=== PATIENT | male | born 1970 | race Caucasian/White ===

== ENCOUNTER 2021-05-24 18:17 | Emergency (ER) | payer OTHER ==
--- OUTSIDE RECORDS SUMMARY | 2021-05-24 18:22 | XMS REPORT | Continuity of Care Document ---
:1970 Author Organization [facility] t Address [address] [place] [address] Care Team Providers Name Role Phone Ashish Liu Primary Care Physician Taylor Henson Attending Clinician Shanice Leyva Attending Clinician Josephine DODGE Attending Clinician Unavailable Graeme Pathak Attending Clinician Charleen Tovar Attending Clinician Soraya Hope Attending Clinician MELI MOORE Attending Clinician Unavailable LIS Attending Clinician Unavailable ANGELY RODRIGUEZ Attending Clinician Unavailable Fernando Attending Clinician Robert Suarez Attending Clinician Graeme Pathak Admitting Clinician CASE Admitting Clinician Unavailable YUKI Admitting Clinician Unavailable Payers Payer Name Policy Type Policy Number Effective Date Expiration Date S ource Problems Condition Condition Condition Status Onset Resolution Last Treating Co mments Source Name Details Category Date Date Treatment Clinician Date RESEARCH Diagnosis Active 2021-05-16 M emoria 05-21 09:20:00 l RESEARCH 13:00: [place] urbina 00 Active 05/21/2021 [facility] KILLIAN Diagnosis Active 2021-01-24 Mem oria 3 11:21:00 l KILLIAN 00:00: Dominguez 00 Active 01/08/2021 [facility] OBSTRUCTIV Diagnosis Active 2021-02-05 Memoria E SLEEP 2- 07:41:00 l APNEA 00:00: Sidney (ADULT) OBSTRUCTIV 00 (PEDIATR E SLEEP APNEA (ADULT) (PEDIATR Active 12/31/2020 [facility] Nausea and Nausea and Disease Active Overview : [facility] vomiting, vomiting, 2-21 Added [facility] - intractabi intractabi 00:00: automatic Medical lity of lity of 00 ally from [facility] vomiting vomiting request not not for specified, specified, surgery unspecifie unspecifie [id number] d vomiting d vomiting type type Abdominal Abdominal Disease Active Overview: [facility] pain, pain, 2-21 [facility] - unspecifie unspecifie 00:00: automatic Medical d d 00 ally from [place] abdominal abdominal request location location for surgery [id number] Enteritis Enteritis Disease Active [facility] PAIN Diagnosis Active 2017-07-28 Mem oria 8 10:20:00 l PAIN 00:00: [place] 00 Active 06/28/2017 [facility] J32 - Diagnosis Active 2017-07-19 Mem oria CHRONIC 06-11 16:09:00 l SINUSITIS J32 - 00:01: [place] n CHRONIC 00 SINUSITIS [facility] Diagnosis Active 2016-06-05 Mem oria 715 09:59:00 l G20 00:00: Sidney 00 Active 05/22/2016 [facility] R25.1 - Diagnosis Active 2016-04-14 Or moria "TREMOR, -23 13:37:00 l UNSPECIFIE R25.1 - 00:01: Her cher D" "TREMOR, 00 UNSPECIFIE D" Active 6 [facility] [place] 327.23 Diagnosis Active 2014-06-26 Mem oria 8-12 08:30:00 l 327.23 00:00: [place] 00 Active 06/19/2014 [facility] 784.0 - Diagnosis Active 2014-07-03 Me moria HEADACHE 6-18 15:49:00 l 784.0 - 00:01: Dominguez HEADACHE 00 Active 04/25/2013 [facility] [place] Asthma Problem Active 2021-05-24 Memor ia (disorder) 21:19:21 l Asthma Dominguez (disorder) Active Problem 05/24/2021 [facility] Hypertensi Problem Active 2021-05-24 M emoria ve 21:19:21 l disorder, Dominguez systemic Hypertensi arterial ve (disorder) disorder, systemic arterial (disorder) Active Problem 05/24/2021 [facility] Obstructiv Problem Active 2021-05-24 M emoria e sleep 21:19:21 l apnea Dominguez syndrome Obstructiv (disorder) e sleep apnea syndrome (disorder) Active Problem 05/24/2021 [facility] Parkinson' Problem Active 2021-05-24 M emoria s disease 21:19:21 l (disorder) [place] Parkinson' s disease (disorder) Active [facility] [place] Tremor Problem Active 2021-05-24 Memor ia (finding) 21:19:21 l Tremor Sidney (finding) Active Problem 05/24/2021 [facility], [place] Impaired Problem Active 2021-05-24 Mem oria cognition 21:19:21 l (finding) Impaired Her kwon cognition (finding) Active Problem 05/24/2021 [facility] Finding of Problem Active 2018-05-09 M emoria body mass 11:41:32 l index Finding Dominguez (finding) of body mass index (finding) Active Problem 05/09/2018 [facility] Radiculopa Problem Active 2017-05-25 M emoria thy, 02:45:01 l cervical [place] region Radiculopa thy, cervical region Active Problem 05/25/2017 [facility] Tremor, Problem Active 2017-05-25 Flip emilia unspecifie 02:45:01 l d Tremor, Dominguez unspecifie d Active Problem 05/25/2017 [facility] Parkinson' Problem Active 2017-05-25 M emoria s disease 02:45:01 l [place] Parkinson' s disease Active Problem 05/25/2017 [facility] Brachial Problem Active 2017-05-25 Mem oria neuritis 02:45:01 l or Brachial [place] n radiculiti neuritis s NOS or radiculiti s NOS Active Problem 05/25/2017 [facility] Obstructiv Problem Active 2014-10-19 M emoria e sleep 05:02:26 l apnea Dominguez Obstructiv e sleep apnea Active Problem 10/19/2014 [facility] History of Past Illness Condition Condition Condition Status Onset Resolution Last Treating Co mments Source Name Details Category Date Date Treatment Clinician Date Obstructiv Problem 2018-05-09 2018-05-09 Memoria e sleep 02-05 11:41:32 11:41:32 l apnea 03:28: Sidney (adult) Obstructiv 42 (pediatric e sleep ) apnea (adult) (pediatric ) 02/05/2018 05/09/2018 [facility] Allergies, Adverse Reactions, Alerts Allergy Allergy Status Severity Reaction(s) Onset Inactive Treating Comm ents Source Name Type Date Date Clinician No Known DA Active [facility] -15 [place] 00:00: Health 00 are [place] Family History Family Member Diagnosis Comments Start Date Stop Date Source Natural mother Hypertension [facility] Natural mother Stroke [facility] Natural mother Depression [facility] Paternal grandfather Cancer [facility] Natural brother Asthma [facility] Natural father Arthritis [facility] Natural father Asthma [facility] Natural father Heart disease [facility] Natural father Hypertension [facility] Unknown Family Family History 2015-09-24 2015-09-24 Sandra al Dominguez Member 03:45:01 03:45:01 Social History Social Habit Start Date Stop Date Quantity Comments Source History of tobacco Current smoker [facility] - use [facility] History SDOH [facility] - Alcohol St[facility] History SDOH [facility] - Alcohol Binge Medical Nomi ter Sex Assigned At [facility] Social History 2021-02-04 2021-02-04 Nay shabazz 14:50:58 14:50:58 Cigarettes smoked 2019-01-02 2019-01-[address] [facility] - current (pack per 00:00:00 00:00:00 [facility] day) - Reported Cigarette 2019-01-02 2019-01-[address] [facility] - pack-years 00:00:00 00:00:00 [facility] Tobacco use and 2019-01-02 2019-01-[address] [facility] - exposure 00:00:00 00:00:00 [facility] Alcohol intake 2019-01-02 2019-01-[address] [facility] [facility] - 00:00:00 00:00:00 non-drinker of Medical Ce nter alcohol (finding) History SDOH 2018-12-14 2018-12-[address] [facility] - Alcohol Frequency 00:00:00 00:00:00 [facility] Smoking 2016-06-17 2016-06-17 [facility] 00:00:00 00:00:00 Smoking Status Start Date Stop Date Source Former smoker 2019-01-02 00:00:00 2019-01-02 00:00:00 [facility] Medications Ordered Filled Start Stop Current Ordering Indication Dosage Frequency Signature Comments Components Source Medication Medication Date Date Medication? Clinician (SIG) Name Name lidocaine No Route: IV, Me moria (ANES) 02-05 Drug form: l 12:59: INJ, ONCE, Stop date: 02/05/21 7:59:00 CDT propofol No Route: IV, Mem oria (ANES) 02-05 Drug form: l 12:59: INJ, ONCE, Stop date: 02/05/21 7:59:00 CDT glycopyrrol No Route: IV, Memoria ate (ANES) 02-05 Drug form: l 12:59: INJ, ONCE, Stop date: 02/05/21 7:59:00 CDT LR IV 1,000 No 1,000 mL, M emoria mL 02-05 Rate: 40 l 12:08: ml/hr, Infuse over: 25 hr, Route: IV, Dosing Weight 108.693 kg, Total Volume: 1,000, Start date: 02/05/21 7:08:00 CDT, Duration: 30 day, Stop date: 03/07/21 7:07:00 CDT, 2.34, m2, 0 metoprolol 0 Yes 100 mg = 1 M emoria tartrate 3-30 tab, PO, l 100 mg oral 14:52: BID, # 60 H ermann tablet 00 tab, 0 Refill(s) rasagiline 0 Yes 1 mg = 1 Mem oria 1 MG Oral 3-19 tab, PO, l Tablet 21:39: Daily, # Dominguez [Azilect] 00 30 tab, 6 Refill(s), Pharmacy: [facility] #[id number], 177.8, cm, 01/24/21 13:48:00 CDT, Height, 113.352, kg, 01/24/21 13:48:00 CDT, Weight Donepezil 0 Yes 10 mg = 1 Mem oria hydrochlori 3-19 tab, PO, l de 10 MG 21:38: Bedtime, # Her kwon Oral Tablet 00 30 tab, 6 [Aricept] Refill(s), Pharmacy: [facility] #[id number], 177.8, cm, 01/24/21 13:48:00 CDT, Height, 113.352, kg, 01/24/21 13:48:00 CDT, Weight 8 HR 0 Yes 1 cap, PO, Memoria Carbidopa 3-19 TID, # 90 l 36.25 MG / 21:36: cap, 6 Kimberlyn nn Levodopa 00 Refill(s), 145 MG Pharmacy: [facility] Oral #[id number], Capsule 177.8, cm, [Rytary] 01/24/21 13:48:00 CDT, Height, 113.352, kg, 01/24/21 13:48:00 CDT, Weight 8 HR 0 Yes 1 cap, PO, Memoria Carbidopa 3-19 TID, # 90 l 61.25 MG / 21:36: cap, 6 Kimberlyn nn Levodopa 00 Refill(s), 245 MG Pharmacy: [facility] #[id number], Capsule 177.8, cm, [Rytary] 01/24/21 13:48:00 CDT, Height, 113.352, kg, 01/24/21 13:48:00 CDT, Weight Donepezil 2019-11 Yes See Memoria hydrochlori 2-08 Instructio l de 10 MG 22:26: ns, 1/2 [place] n Oral Tablet 00 tab PO [Aricept] Bedtime x 1 month then 1 tab at bedtime, # 30 tab, 6 Refill(s), Pharmacy: [facility] 738, 177.8, cm, 10/15/20 14:55:00 LAW REPORTER, Height, 112.784, kg, 10/15/20 14:55:00 LAW REPORTER, Weight 8 HR 2019-11 Yes 1 cap, PO, Memoria Carbidopa 0-23 TID, # 90 l 36.25 MG / 21:33: cap, 6 Kimberlyn nn Levodopa 00 Refill(s), 145 MG Pharmacy: [facility] Oral 738, Capsule 177.8, cm, [Rytary] 09/20/19 13:21:00 LAW REPORTER, Height, 112.727, kg, 09/20/19 13:21:00 LAW REPORTER, Weight rOPINIRole 2018-11 Yes 2 tabs, Flip emilia 5 mg oral 1-13 PO, TID, # l tablet 20:13: 270 tab, 0 Kimberlyn nn 00 Refill(s) 8 HR 2018-11 Yes 1 cap, PO, Memoria Carbidopa 1-13 TID, 0 l 61.25 MG / 20:13: Refill(s) He rmann Levodopa 00 245 MG Extended Release Oral Capsule [Rytary] CPAP 2018-11 Yes 1 ea, Memoria Machine 1-13 MISC, l 19:46: Daily, New Dominguez 00 CPAP mask and headgear for dx OSAS G47.33 with PAP applicatio n., # 1 ea, 0 Refill(s) carbidopa/l 2018- Yes 23.75mg [id number] Take 23.[address] evodopa 9-29 [id number] mg by [facility] - (RYTARY 14:29: 3D mouth 3 Medical ORAL) 07 (three) Center times daily 7 AM /12 Noon & 1700 ( Dose 23.75/95 mg). fenofibrate Yes 160mg QD Take [address] (TRIGLIDE,L 9-29 mg by [facility] - OFIBRA) 160 14:29: mouth Medic al MG tablet 07 daily. [place] rasagiline Yes 1mg QD Take [address] (AZILECT) 08-06 by mouth [facility] - 0.5 MG Tab 14:29: daily. Medic al 07 [place] rOPINIRole Yes 8mg QD Take [address] (REQUIP XL) 08-06 by mouth Luke [facility] - 8 MG 24 hr 14:29: nightly. Med ical tablet 07 [place] rotigotine Yes idiopathic 8mg QD Place [address] (NEUPRO) 8 08-06 parkinsonis onto the [facility] - mg/24 hour 14:29: m skin Medical PT24 06 daily. [place] montelukast Yes maintenance 10mg QD Take [address] (SINGULAIR) 08-06 therapy for by mouth [facility] - 10 mg 14:29: asthma nightly. Medica l tablet 06 [place] desvenlafax Yes 25mg QD Take [address] ine 08-06 by mouth [facility] - succinate 14:29: daily . Medic al (PRISTIQ) 06 [place] 25 mg Tb24 pramipexole Yes 1 mg = 1 Me moria 1 mg oral 4-04 tab, PO, l tablet 12:34: TID, # 90 [place] n 45 tab, 0 Refill(s), Pharmacy: [place] [address], PT NEEDS A FOLLOW UP CPAP Yes 1 ea, Memoria Machine 07-30 MISC, l 13:05: Daily, Has [place] 00 machine for CPAP at 11cm H2O. Needs new mask and supplies with refills prn, # 1 ea, 5 Refill(s) pramipexole Yes 1 mg = 1 Me moria 1 mg oral 07-30 tab, PO, l tablet 12:56: TID, # 270 Kimberlyn nn 00 tab, 1 Refill(s), Pharmacy: [place] [address] pramipexole Yes 0.5 mg = 1 Memoria 0.5 mg oral 4-13 tab, PO, l tablet 15:33: TID, # 90 [place] n 00 tab, 3 Refill(s), Pharmacy: [place] [address] pramipexole Yes See Memori a 0.125 mg 4-13 Instructio l oral tablet 15:33: ns, 1 tab H ermann 00 po tid x 7 days then 2 tabs po tid (then will increase to 0.5mg tablets), 14 days, # 63 tab, 0 Refill(s), Pharmacy: [place] [address] B-Complex Yes 1 tab, PO, Me moria 50 2-13 Daily, 0 l 22:47: Refill(s) rasagiline Yes 1 mg = 1 Mem oria 1 MG Oral 1-16 tab, PO, l Tablet 12:19: Daily, # Dominguez [Azilect] 00 30 tab, 11 Refill(s), Pharmacy: [place] [address] Fentanyl No Notes: Memoria 9-20 (Same as: l 17:31: Sublimaze) Preservat maegan free. Ondansetron No Notes: Flip emilia 9-20 (Same as: l 17:31: Zofran) MEDICATION WASTE Product Size: 4 mg Product Wasted: ___ mg Flumazenil No Notes: Memor ia 9-20 (Same as: l 17:31: Romazicon) Hydromorpho No Notes: Flip emilia ne -20 Same as: l 17:31: Dilaudid Naloxone No Notes: Memoria 9-20 Same as l 17:31: Narcan Hydralazine No Notes: Flip emilia 9-20 (Same as: l 17:31: Apresoline ) Push over 5 minutes Labetalol No 10 mg, 2 Flip emilia 9-20 mL, Route: l 17:31: IVP, Drug form: INJ, Q5Min, Dosing Weight 92.443, kg, PRN Elevated BP, Start date: 07/28/17 12:31:00 CDT, Duration: 5 doses or times, Stop date: Limited # of times fentaNYL No Route: IV, Mem oria (ANES) - Drug form: l 17:31: INJ, ONCE, Stop date: 07/28/17 12:31:00 CDT neostigmine No Route: IV, Memoria (ANES) 07-28 Drug form: l 17:31: INJ, ONCE, Dominguez Stop date: 07/28/17 12:31:00 CDT glycopyrrol No Route: IV, Memoria ate (ANES) 07-28 Drug form: l 17:31: INJ, ONCE, Dominguez Stop date: 07/28/17 12:31:00 CDT ondansetron No Route: IV, Memoria (ANES) 07-28 Drug form: l 17:31: INJ, ONCE, Dominguez 00 Stop date: 07/28/17 12:31:00 CDT Zofran Yes Notes: Memoria 07-28 (Same as: l 17:25: Zofran) Dominguez Sodium No 1,000 ml, Memori a Chloride 07-28 Route: l 0.0769 17:25: IRRIG, Sidney MEQ/ML 00 Drug Form: Irrigation SOLN, Solution Dosing Weight 92.443, kg, Q6H, PRN Wound Care, Start date: 07/28/17 12:25:00 CDT, Duration: 30 day, Stop date: 08/27/17 12:24:00 CDT Acetaminoph No Notes: Flip emilia en 325 MG / 07-28 (Same as: l Hydrocodone 17:25: [place] Kimberlyn nn Bitartrate 00 325/5) Do 5 MG Oral not exceed Tablet 4gm/day of acetaminop hen. ePHEDrine No Route: IV, Me moria (ANES) 07-28 Drug form: l 14:48: INJ, ONCE, Sidney 00 Stop date: 07/28/17 9:48:00 CDT famotidine No Route: IV, M emoria (ANES) 07-28 Drug form: l 14:43: INJ, ONCE, Sidney 00 Stop date: 07/28/17 9:43:00 CDT acetaminoph No Route: IV, Memoria en (ANES) 07-28 Drug form: l 14:43: INJ, ONCE, Dominguez 00 Stop date: 07/28/17 9:43:00 CDT phenylephri 2016- No Route: IV, Memoria ne (ANES) 07-28 Drug form: l 14:43: INJ, ONCE, Sidney Stop date: 07/28/17 9:43:00 CDT dexamethaso No Route: IV, Memoria ne (ANES) 07-28 Drug form: l 14:33: INJ, ONCE, Sidney Stop date: 07/28/17 9:33:00 CDT lidocaine No Route: IV, Me moria (ANES) 07-28 Drug form: l 14:28: INJ, ONCE, Dominguez 00 Stop date: 07/28/17 9:28:00 CDT propofol No Route: IV, Mem oria (ANES) 07-28 Drug form: l 14:28: INJ, ONCE, Dominguez 00 Stop date: 07/28/17 9:28:00 CDT rocuronium No Route: IV, M emoria (ANES) 07-28 Drug form: l 14:28: INJ, ONCE, Dominguez 00 Stop date: 07/28/17 9:28:00 CDT midazolam No Route: IV, Me moria (ANES) 07-28 Drug form: l 14:28: SOLN, Sidney 00 ONCE, Stop date: 07/28/17 9:28:00 CDT fentaNYL No Route: IV, Mem oria (ANES) 07-28 Drug form: l 14:28: INJ, ONCE, Sidney 00 Stop date: 07/28/17 9:28:00 CDT ceFAZolin No Route: IV, Me moria (ANES) 07-28 Drug form: l 14:28: INJ, ONCE, Stop date: 07/28/17 9:28:00 CDT Lidocaine No 5 mg, Memoria Hydrochlori 07-28 Route: l de 10 MG/ML 14:00: INTRADERM, Sidney Injectable Dosing Solution Weight 92.443, kg, ONCALL, Start date: 07/28/17 9:00:00 CDT, Duration: 30 day, Stop date: 08/27/17 8:59:00 CDT LR 1000 mL 2017-0 No Route: IV, M emoria INJ (ANES) 07-28 Total l 13:48: Volume: Dominguez 00 1,000, Start date: 07/28/17 8:48:00 CDT, Stop date: 07/28/17 9:48:00 CDT Lactated No 1,000 mL, Flip emilia Ringers 07-28 Rate: 40 l 1,000 mL 13:14: ml/hr, Infuse over: 25 hr, Route: IV, Dosing Weight 92.443 kg, Total Volume: 1,000, Start date: 07/28/17 8:14:00 CDT, Duration: 30 day, Stop date: 08/27/17 8:13:00 CDT Zofran No Notes: Memoria 07-28 (Same as: l 10:00: Zofran) MEDICATION WASTE Product Size: 4 mg Product Wasted: ___0 mg ceFAZolin No Notes: Memori a 07-28 Same as: l 10:00: Ancef oxymetazoli No Notes: Flip emilia ne nasal 07-28 (Same as: l 0.05% spray 10:00: Afrin) cetirizine Yes 10 mg = 1 Me moria hydrochlori -19 tab, PO, l de 10 MG 15:34: Daily, 0 Kimberlyn nn Oral Tablet 00 Refill(s) [Zyrtec] Hydrochloro Yes 1 tab, PO, Memoria thiazide 25 - Daily, 0 l MG / 15:34: Refill(s) Losartan 00 Potassium 100 MG Oral Tablet Fenofibrate Yes 160 mg = 1 Memoria 160 MG Oral -19 tab, PO, l Tablet 15:33: Daily, 0 Dominguez 00 Refill(s) EnLyte oral Yes 1 cap, PO, Memoria capsule - Daily, 0 l 15:33: Refill(s) rasagiline Yes 1 mg = 1 Mem oria 1 MG Oral -19 tab, PO, l Tablet 15:32: Daily, # Sidney [Azilect] 00 30 tab, 0 Refill(s) Zofran No Notes: Memoria 07-27 (Same as: l 10:00: Zofran) Dominguez 00 MEDICATION WASTE Product Size: 4 mg Product Wasted: ___0 mg losartan-hy Yes 1 tab, PO, [facility] droCHLOROth 07-27 Daily, 0 Luke s - iazide 00:00: Refill(s) Medica l (HYZAAR) 00 Center 100-25 mg per tablet testosteron Yes Dudley 0 Memori a e 7-18 Hope l 02:45: Dominguez 01 fenofibrate Yes Dudley 1 tab(s) Me moria 18 Hope l 02:45: Dominguez 01 hydrochloro Yes Dudley 1 tab Memor ia thiazide-lo 18 Hope l sartan 02:45: Sidney 01 selegiline Yes Dudley 1 tab Memori a 9-08 Hope l 00:00: [place] Azilect Yes Dudley 1 tab Memoria 8-11 Hope l 00:00: [place] CPAP [id number] 0 Yes Dudley PAP Memoria 8-21 Hope supplies l 00:00: 4ea mask Dominguez 00 [id number], A7030 and/or A7034 q3mos, 24ea mask pillows A7033 q2wk, 2ea chinstrap A7036 q6mos, 24ea filters disposable A7038 q2wk, 2ea humidifier chamber A7046 q6mos, 24ea mask cushion A7032 q2wk, 2ea headgear A7035 q6mos Vital Signs Vital Name Observation Time Observation Value Comments Source Respitory Rate 2021-02-05 13:50:00 Memori al Dominguez Systolic (mm Hg) 2021-02-05 13:50:00 Flip rial [place] Diastolic (mm Hg) 2021-02-05 13:50:00 Mem orial [place] Respitory Rate 2021-02-05 13:40:00 Memori al Dominguez Systolic (mm Hg) 2021-02-05 13:40:00 Flip rial Dominguez Diastolic (mm Hg) 2021-02-05 13:40:00 Mem orial Dominguez Respitory Rate 2021-02-05 13:30:00 Memori al [place] Systolic (mm Hg) 2021-02-05 13:25:00 Flip rial [place] Diastolic (mm Hg) 2021-02-05 13:25:00 Mem orial Dominguez Weight 2021-02-05 11:38:00 Memorial [place] Height 2021-02-04 14:50:00 177.8 cm Memorial Dominguez Weight 2021-02-04 14:50:00 Memorial Dominguez BMI Calculated 2021-02-04 14:50:00 Memori al Dominguez Systolic (mm Hg) 2021-01-24 15:50:00 Flip rial [place] Diastolic (mm Hg) 2021-01-24 15:50:00 Mem orial [place] Heart Rate 2021-01-24 15:50:00 Memorial [place] Height 2021-01-24 15:50:00 177.8 cm Memorial Dominguez Weight 2021-01-24 15:50:00 Memorial [place] BMI Calculated 2021-01-24 15:50:00 Memori al [place] Systolic (mm Hg) 2020-10-15 20:55:00 Flip rial Dominguez Diastolic (mm Hg) 2020-10-15 20:55:00 Mem orial [place] Heart Rate 2020-10-15 20:55:00 Memorial Dominguez Height 2020-10-15 20:55:00 177.8 cm Memorial [place] Weight 2020-10-15 20:55:00 Memorial Dominguez BMI Calculated 2020-10-15 20:55:00 Memori al [place] Systolic (mm Hg) 2019-09-20 13:55:00 Filp rial Dominguez Diastolic (mm Hg) 2019-09-20 13:55:00 Mem orial [place] Heart Rate 2019-09-20 13:55:00 Memorial Dominguez Height 2019-09-20 13:55:00 177.8 cm Memorial Dominguez Weight 2019-09-20 13:55:00 Memorial [place] BMI Calculated 2019-09-20 13:55:00 Memori al [place] Weight 2018-07-27 12:02:00 Memorial Dominguez BMI Calculated 2018-07-27 12:02:00 Memori al [place] Height 2018-07-27 12:02:00 177.8 cm Memorial [place] Heart Rate 2018-07-27 12:02:00 [facility] [place] Systolic (mm Hg) 2018-07-27 12:02:00 Flip rial [place] Diastolic (mm Hg) 2018-07-27 12:02:00 Mem orial [place] Systolic (mm Hg) 2018-05-03 20:23:00 Flip rial Dominguez Diastolic (mm Hg) 2018-05-03 20:23:00 Mem orial Dominguez Weight 2018-05-03 20:23:00 Memorial [place] BMI Calculated 2018-05-03 20:23:00 Memori al [place] Heart Rate 2018-05-03 20:23:00 [facility] [place] Height 2018-05-03 20:23:00 177.8 cm Memorial Dominguez Height 2018-02-17 22:04:00 177.8 cm Memorial Dominguez BMI Calculated 2018-02-17 22:04:00 Memori al [place] Weight 2018-02-17 22:04:00 Memorial Dominguez Systolic (mm Hg) 2018-02-17 22:04:00 Flip rial [place] Diastolic (mm Hg) 2018-02-17 22:04:00 Mem orial Dominguez Heart Rate 2018-02-17 22:04:00 [facility] [place] BMI Calculated 2017-12-21 22:04:00 Memori al Dominguez Weight 2017-12-21 22:04:00 Memorial Dominguez Height 2017-12-21 22:04:00 177.8 cm Memorial [place] Heart Rate 2017-12-21 22:04:00 [facility] [place] Systolic (mm Hg) 2017-12-21 22:04:00 Flip rial [place] Diastolic (mm Hg) 2017-12-21 22:04:00 Mem orial Dominguez Respitory Rate 2017-07-28 18:40:00 Memori al Dominguez Systolic (mm Hg) 2017-07-28 18:40:00 Flip rial [place] Diastolic (mm Hg) 2017-07-28 18:40:00 Mem orial [place] Respitory Rate 2017-07-28 18:30:00 Memori al [place] Systolic (mm Hg) 2017-07-28 18:30:00 Flip rial Dominguez Diastolic (mm Hg) 2017-07-28 18:30:00 Mem orial Dominguez Systolic (mm Hg) 2017-07-28 18:20:00 Flip rial Dominguez Diastolic (mm Hg) 2017-07-28 18:20:00 Mem orial Dominguez Respitory Rate 2017-07-28 18:20:00 Sandra hobson Sidney Temperature Oral (F) 2017-07-28 13:05:00 98.1 F [facility] Dominguez Weight 2017-07-28 12:48:00 [facility] [place] Height 2017-07-27 15:34:00 177.8 cm Memorial Dominguez BMI Calculated 2017-07-27 15:34:00 Memori al [place] Weight 2017-07-27 15:34:00 [facility] [place] Weight 2017-05-17 15:45:00 [facility] [place] Height 2017-05-17 15:45:00 [facility] [place] Weight 2016-06-17 18:00:00 Memorial Dominguez Height 2016-06-17 18:00:00 [facility] Dominguez Weight 2016-05-18 19:45:00 [facility] Dominguez Height 2016-05-18 19:45:00 [facility] [place] Weight 2015-09-17 21:15:00 [facility] Dominguez Height 2015-09-17 21:15:00 [facility] [place] Weight 2014-03-05 19:15:00 [facility] Dominguez Height 2014-03-05 19:15:00 [facility] Dominguez Procedures Procedure Date / Time Performed Performing Clinician [facility] e Lumpectomy [facility] Plan of Care Planned Activity Planned Date Details Comments Source Future Scheduled 2021-07-[address] [facility] - Test 00:00:00 (Season Ended) [code = Medic al Center INFLUENZA VACCINE (Season Ended)] Future Scheduled 2020-11-[address] [facility] - Test 00:00:00 (12+) [code = [facility] DEPRESSION SCREENING (12+)] Future Scheduled 2019 SHINGLES VACCINES ([address] [facility] - Test 00:00:00 of 2) [code = SHINGLES Medic al Center VACCINES (1 of 2)] Future Scheduled [address] Test 00:00:00 (procedure) [code = [facility] [id number]] Future Scheduled 1988 DTAP/TDAP/TD VACCINES [facility] Test 00:00:00 (1 - Tdap) [code = Medical C enter DTAP/TDAP/TD VACCINES (1 - Tdap)] Future Scheduled 1987 HEPATITIS C [facility]CRE[facility]ING [facility] Test 00:00:00 [code = HEPATITIS C Medical Center SCREENING] Future Scheduled [address] [facility] - Test 00:00:00 0-64 YRS (1 of 3 - Medical C enter PCV13) [code = PNEUMOCOCCAL VACCINE 0-64 YRS (1 of 3 - PCV13)] Future Scheduled [address] [facility] Test 00:00:00 [facility] colon (procedure) [code = 133961871] Encounters Start End Encounter Admission Attending Care Care Encounter Source Date/Time Date/Time Type Type Clinicians Facility Department ID 2021-05-16 Outpatient [facility] [id number] HH 09:19:00 2021-03-06 Outpatient [facility] [id number] HH 12:00:34 2021-03-06 Outpatient [facility] [id number] HH 11:54:46 2021-05-22 2021-05-22 Outpatient Sixto MISCHER MHMISCHER [id number] 08:30:00 08:30:00 Gracie Vazquez 2021-04-25 2021-04-25 Outpatient Gordon MISCHER MHMISCHER [id number] 12:00:00 23:59:59 Tess Prasad 2021-04-25 2021-04-25 Outpatient Gordon MISCHER MHMISCHER [id number] 12:00:00 12:00:00 Tess Prasad 2021-04-25 2021-04-[address] [facility] [id number] 00:00:00 00:00:00 [facility] [id number] [place] [id number] 2021-02-05 2021-02-05 Outpatient LANIE Pathak [id number] 06:17:00 09:10:00 Mook Jef Graeme 2021-02-05 2021-02-05 Outpatient LANIE Pathak [id number] 09:00:00 09:00:00 Mook 04 Graeme 2021-02-05 2021-02-05 Outpatient MHTW MHTW [id number] MHTW 06:17:00 06:17:00 2021-01-24 2021-01-24 Outpatient Leyva, MHMISCHER MHMISCHER [id number] 13:30:00 23:59:59 Tess Prasad 2021-01-24 2021-01-24 Outpatient LANIE Pathak [facility] [id number] 11:15:00 23:59:00 Mooktyra Bedolla 2021-01-24 2021-01-24 Outpatient MHTW MHTW [id number] MHTW 11:15:00 11:15:00 2021-01-17 2021-01-18 Outpatient MHMISCHER MHMISCHER [id number] 10:43:08 23:59:59 11 2020-12-16 2020-12-16 Outpatient Guy, MHMISCHER MHMISCHER 3 [id number] 14:00:00 14:00:00 Tory Villaseñor 2020-10-30 2020-10-31 Outpatient MHMISCHER MHMISCHER 003 [id number] 16:06:46 23:59:59 10 2020-10-15 2020-10-15 Outpatient Gordon, MHMISCHER MHMISCHER [id number] 14:30:00 23:59:59 Tess 08 Shanice 2020-10-01 2020-10-02 Outpatient MHMISCHER MHMISCHER [id number] 10:43:33 23:59:59 09 2019-10-20 2019-10-20 Outpatient Guy, MHMISCHER MHMISCHER 3 [id number] 11:00:00 11:00:00 Tory Villaseñor 07 2019-09-20 2019-09-20 Outpatient Guy, MHMISCHER MHMISCHER 3 [id number] 13:00:00 23:59:59 Tory Villaseñor 06 2019-09-20 2019-09-20 Outpatient Herminia, MHMISCHER MHMISCHER 3 [id number] 14:30:00 14:30:00 Dudley Lira 2018-10-19 2018-10-19 Outpatient Herminia MHMISCHER MHMISCHER 3 [id number] 09:00:00 09:00:00 Dudley 04 [place] 2018-10-09 2018-10-10 Outpatient MHMISCHER MHMISCHER [id number] 08:09:00 23:59:59 08 2018-07-27 2018-07-27 Outpatient Herminia MHMISCHER MHMISCHER 3 [id number] 10:30:00 23:59:59 Dudley [place] 2018-05-04 2018-05-04 Outpatient Herminia MHMISCHER MHMISCHER 3 [id number] 08:00:00 23:59:59 Dudley [place] 2018-04-26 2018-04-27 Outpatient MHMISCHER MHMISCHER [id number] 08:49:00 23:59:59 07 2018-03-01 2018-03-02 Outpatient MHMISCHER MHMISCHER [id number] 10:55:00 23:59:59 06 2018-02-18 2018-02-19 Outpatient MHMISCHER MHMISCHER [id number] 11:35:00 23:59:59 05 2018-02-18 2018-02-19 Outpatient MHMISCHER MHMISCHER [id number] 10:52:00 23:59:59 04 2018-02-18 2018-02-18 Outpatient Herminia MHMISCHER MHMISCHER 3 [id number] 09:30:00 23:59:59 Dudley [place] 2018-01-31 2018-01-31 Outpatient LANIE King [facility] [id number] 14:30:00 23:59:00 Desi 03 2017-12-21 2017-12-21 Outpatient Herminia MHMISCHER MHMISCHER 3 [id number] 15:30:00 23:59:59 Dudley [place] 2017-11-22 2017-11-23 Outpatient MHMISCHER MHMISCHER [id number] 15:06:00 23:59:59 03 2017-11-22 2017-11-23 Outpatient MHMISCHER MHMISCHER [id number] 12:06:00 23:59:59 02 2017-11-17 2017-11-18 Outpatient MHMISCHER MHMISCHER [id number] 15:59:00 23:59:59 2017-10-21 2017-10-22 Outpatient [facility] [id number] 11:34:00 23:59:59 00 2017-07-28 2017-07-28 Outpatient LANIE Suarez [facility] [id number] 07:39:00 14:00:00 Jaret Jones 02 2017-06-22 2017-06-22 Outpatient Quegabriel [address] [place] [address] [id number] 07:43:00 23:59:00 Jaret Jones 04 2017-05-17 2017-05-17 Outpatient The The [id number] eClinic 10:45:00 10:45:00 [facility] [facility] 2016-08-13 2016-08-13 Outpatient The The [id number] eClinic 10:31:00 10:31:00 [facility] [facility] Neu[facility] Sleep 2016-06-23 2016-06-23 Outpatient The The [id number] eClinic 13:36:00 13:36:00 [facility] [facility] Neu[facility] Sleep 2016-06-17 2016-06-17 Outpatient The The [id number] eClinic 13:00:00 13:00:00 [facility] [employer] [facility] Neurology and Sleep [facility] Sleep 2016-06-12 2016-06-12 Outpatient The The [id number] eClinic 14:30:00 14:30:00 [facility] [facility] Neu[facility] Sleep 2016-06-05 2016-06-05 Outpatient Herminia [facility] [id number] 09:49:00 23:59:00 Dudley Lira 2016-05-18 2016-05-18 Outpatient The The [id number] eClinic 15:57:00 15:57:00 [facility] [facility] Neurology [facility] Sleep 2016-05-18 2016-05-18 Outpatient The The [id number] eClinic 14:45:00 14:45:00 [facility] [facility] Neurology [facility] Sleep 2016-04-21 2016-04-21 Outpatient The The [id number] eClinic 18:09:00 18:09:00 [facility] [employer] [facility] Neurology and Sleep [facility] Sleep 2016-04-21 2016-04-21 Outpatient The The [id number] eClinic 14:56:00 14:56:00 [facility] [facility] Neurology and Sleep [facility] Sleep 2016-04-14 2016-04-14 Outpatient [place], [place] [id number] 13:28:00 23:59:00 Dudley Lira 2016-03-11 2016-03-11 Outpatient The The [id number] eClinic 16:50:00 16:50:00 [facility] Neurology [facility] Sleep [facility] Sleep 2015-09-17 2015-09-17 Outpatient The The [id number] eClinic 15:15:00 15:15:00 [facility] [facility] Neurology and Sleep [facility] Sleep 2014-06-28 2014-06-28 Outpatient The The [id number] eClinic 13:38:00 13:38:00 [facility] [facility] Neurology and Sleep and Sleep 2014-06-09 2014-06-09 Outpatient The The [id number] eClinic 22:34:00 22:34:00 [facility] [facility] Neurology and Sleep and Sleep 2014-04-24 2014-04-24 Outpatient The The [id number] eClinic 15:55:00 15:55:00 [facility] [facility] Neurology and Sleep [facility] Sleep 2014-04-24 2014-04-24 Outpatient The The [id number] eClinic 15:00:00 15:00:00 [facility] [facility] Neurology [facility] Sleep [facility] Sleep 2014-03-19 2014-03-19 Outpatient The The [id number] eClinic 14:23:00 14:23:00 [facility] [facility] Neurology and Sleep and Sleep 2014-03-05 2014-03-05 Outpatient The The [id number] eClinic 13:15:00 13:15:00 [facility] [facility] Neurology and Sleep and Sleep Results Test Description Test Time Test Comments Results Result Comments Source SURGICAL SPECIMENS 2021-02-24 17:44:00 Test Item Value Reference Range Interpretation Comme nts SURGICAL RUN SPECIMENS DATE: 02/24/21 [facility] - LAB PAGE 1 RUN TIME: (test code 1745 Specimen Inquiry RUN USER: INTERFACE = SURG) PATIE NT: NAYE DYE LOC: L[place]ET U #: [id number] AGE/SX: 50/M ROOM: RE02/21/21REG DR: Lucas Atkins : 68 BED : DIS: STATUS: [facility] TLOC: SPEC #: [id number] RECD: 02/21/21 STATUS: CY SHAZIA #: [id number] EZEQUIEL: 02/21/21 - SUBM DR: Lucas Atkins MD ENTERED: 02/21/21 SP TYPE: SURG OTHR DR: Don Forte-Chito Leigh MD, MDORDERED: PATHGM4/4, STAINGR2, SPEC STAIN I TISSUES: 1. DUODENUM, NOS - DUODENUM BIOPSY 2. GASTRIC BIOPSY - GASTRIC BIOPSY 3. GASTRO-ESOPHAGEAL JUNCTION BIOPSY - GE JUNCTIO N BIOPSY 4. POLYP, NOS - DESCENDING COLON POLYP Clinical Impression Nause a; epigastric pain; diarrhea FINAL DIAGNOSIS 1. Duodenum biopsy - MILD CHRONIC DUOD ENITIS NO CELIAC DISEASE, PARASITIC ORGANISMS, ADENOMATOUS CHANGES OR MALIGNANCY PRESENT 2. Gastric biopsy - MILD CHRONIC GASTRITIS WITH FOVEOLAR HYPERPLASIA (REACTIVE GASTRO CLARTIA) NO HELICOBACTER ORGANISMS PRESENT (MEIER GIEMSA STAIN) REPARATIVE CHANGES 3. GE junction biopsy - MODERATE ACUTE AND CHRONIC GASTROESOPHAGITIS MINIMAL CHANGES OF REFLUX ES OPHAGITIS, ESOPHAGEAL SQUAMOUS MUCOSA NEGATIVE FOR AREVALO'S METAPLASIA (ALCIAN BLUE STAI N) 4. Descending colon polyp - HYPERPLASTIC POLYP GROSS DESCRIPTION 1. Spec imen submitted as "Duodenal biopsy" consists of three fragments of thompson-orange tissue measurin g up to 0.2 cm, submitted as A. 2. Specimen submitted as "Gastric biopsy" consists of one frag ment of thompson-pink tissue measuring 0.3 cm, submitted as B. 3. Specimen submitted as "GE ju nction biopsy" consists of two fragments of pale white-pink tissue measuring 0.2 cm each, submi tted as C. 4. Specimen submitted as "Descending colon polyp" consists of two fragments of thompson-orange tissue measuring 0.2 cm each, submitted as D. All of the stains, including any controls performed, stain appropriately. CONTINUED ON NEXT PAGE RUN DATE: 02/24/21 [email or web address] LAB PAGE 2 RUN TIME: 1745 Specimen Inquiry RUN USER: INTERFACE SPEC #: [id number] PATIENT: NAYE DYE #[id number] (Continued) ------ Post Op Diagn osis: R/O celiac disease; gastritis; esophagitis; colon polyps; hemorrhoids; diverticulosis --------- Signed SIGNATURE O N Ivan Dickey MD 02/24/21 1744 END OF REPORT COVID 19 Asymptomatic IH [id number] 15:46:00 Test Item Value Reference Range Interpretation Comments COVID 19 Asymptomatic NEGATIVE Negative NEGAT MAEGAN RESULTS IH AG (test code = SHOULD BE TREATED COVNONPUIAG) PRESUMPTIVE ANDCONFIRMED WT IH A MOLECULAR ASSAY , IF NECESSARY FOR PATIENTMANAGEME NT. NEGATIVE RESULT S DO NOT RULE OUT CO VID-19 ANDSHOULD NOT B E USED THE SOLE BAS IS FOR TREATMENT ORPAT IENT MANAGEMENT DECI SIONS, INCLUDING INFEC TION CONTROLDECISION S. NEGATIVE RESULT S SHOULD BE CONSI DERED IN THECONTEXT O F A PATIENT'S RECEN T EXPOSURES, HIST ORY AND THEPRESENCE OF CLINICAL SIGNS AND SYMPTOMS CONSIS TENT WITHCOVID-19. [id number] 16:20:00Not Detected *NA*(02/01/21 11:20 AM)[facility] CHEM [id number] 16:01:89648Stqjlbey JoboolannCHEM [id number] 16:01:0014 [facility] HermannCHEM [id number] 16:01:000.85[facility] HermannCHEM PANEL 2021-02-01 16:01:18429Pmpkfijf HermannCHEM [id number] 16:01:003.9[facility] HermannCHEM [id number] 16:01:59684Sjolynaq HermannCHEM [id number] 16:01:0025[facility] HermannCHEM [id number] 16:01:008.9[facility] HermannCHEM [id number] 16:01:009.9[facility] HermannCHEM [id number] 16:01:41697 [facility] METABOLIC [id number] 17:42:00 Test Item Value Reference Range Interpretation Comments SODIUM (BEAKER) 136 meq/L 135-148 (test code = 381) POTASSIUM (BEAKER) 4.0 meq/L 3.6-5.5 Specimen slightly (test code = 379) hemolyzed CHLORIDE (BEAKER) 105 meq/L 98-106 (test code = 382) CO2 (BEAKER) (test 21 meq/L 20-29 code = 355) BLOOD UREA NITROGEN 13 mg/dL 10-26 (BEAKER) (test code = 354) CREATININE (BEAKER) 0.87 mg/dL 0.50-1.20 Specimen slightly (test code = 358) hemolyzed GLUCOSE RANDOM 110 mg/dL 70-110 (BEAKER) (test code = 652) CALCIUM (BEAKER) 9.3 mg/dL 8.5-10.5 (test code = 697) EGFR (BEAKER) (test mL/min/1.73 INSUFFIC IENT CLINICAL code = 1092) sq m DATA TO CALCULA TE ESTIMATED GFR. [id number] 17:41:00 Test Item Value Reference Range Interpretation Comments LIPASE (BEAKER) (test code = 749) 16 U/L 6-51 HEPATIC FUNCTION [id number] 17:41:00 Test Item Value Reference Range Interpretation Comments TOTAL PROTEIN (BEAKER) 7.7 gm/dL 6.0-8.5 Speci men slightly (test code = 770) hemolyzed ALBUMIN (BEAKER) (test 4.7 g/dL 3.5-5.0 Speci men slightly code = 1145) hemolyzed BILIRUBIN TOTAL 0.6 mg/dL 0.1-1.2 Specimen sli ghtly (BEAKER) (test code = hemoly zed 377) BILIRUBIN DIRECT 0.2 mg/dL 0.0-0.4 Specimen sl ightly (BEAKER) (test code = hemoly zed 706) ALKALINE PHOSPHATASE 44 U/L 30-115 (BEAKER) (test code = 346) AST (SGOT) (BEAKER) 23 U/L 5-40 Specimen slightly (test code = 353) hemolyzed ALT (SGPT) (BEAKER) 32 U/L 5-50 Specimen slightly (test code = 347) hemolyzed PT/[id number] 17:36:00 Test Item Value Reference Range Interpretation Comments PROTIME (BEAKER) (test code = 10.9 seconds 9.8-12.0 759) INR (BEAKER) (test code = 370) 1.0 <=5.9 PARTIAL THROMBOPLASTIN TIME 25.5 seconds 25.8-34.5 L (BEAKER) (test code = 760) RECOMMENDED COUMADIN/WARFARIN INR THERAPY RANGESSTANDARD DOSE: 2.0 - 3.0 Includes: PROPHYLAXIS forvenous thrombosis, systemic embolization; TREATMENT for venous thrombosis and/or pulmonary embolus.HIGH RISK: Target INR is 2.5-3.5 for patients with mechanical heart valves.CBC W/PLT COUNT & AUTO DIFFERENTIAL 2019-05-02 17:20:00 Test Item Value Reference Range Interpretation Comments WHITE BLOOD CELL COUNT (BEAKER) 6.6 K/ L 4.0-10.0 (test code = 775) RED BLOOD CELL COUNT (BEAKER) 5.37 M/ L 4.20-5.80 (test code = 761) HEMOGLOBIN (BEAKER) (test code = 15.6 GM/DL 13.0-16.8 410) HEMATOCRIT (BEAKER) (test code = 45.6 % 36.0-50.0 411) MEAN CORPUSCULAR VOLUME (BEAKER) 84.9 fL 82.0-99.0 (test code = 753) MEAN CORPUSCULAR HEMOGLOBIN 29.1 pg 27.0-33.0 (BEAKER) (test code = 751) MEAN CORPUSCULAR HEMOGLOBIN CONC 34.2 GM/DL 32.0-36.0 (BEAKER) (test code = 752) RED CELL DISTRIBUTION WIDTH 13.8 % 12.0-15.0 (BEAKER) (test code = 412) PLATELET COUNT (BEAKER) (test 282 K/CU MM 150-430 code = 756) MEAN PLATELET VOLUME (BEAKER) 9.3 fL 6.0-11.5 (test code = 754) NUCLEATED RED BLOOD CELLS 0 /100 WBC 0-0 (BEAKER) (test code = 413) NEUTROPHILS RELATIVE PERCENT 70 % (BEAKER) (test code = 429) LYMPHOCYTES RELATIVE PERCENT 17 % (BEAKER) (test code = 430) MONOCYTES RELATIVE PERCENT 9 % (BEAKER) (test code = 431) EOSINOPHILS RELATIVE PERCENT 3 % (BEAKER) (test code = 432) BASOPHILS RELATIVE PERCENT 0 % (BEAKER) (test code = 437) NEUTROPHILS ABSOLUTE COUNT 4.59 K/ L 1.80-8.00 (BEAKER) (test code = 670) LYMPHOCYTES ABSOLUTE COUNT 1.13 K/ L 1.48-4.50 L (BEAKER) (test code = 414) MONOCYTES ABSOLUTE COUNT (BEAKER) 0.61 K/ L 0.00-1.30 (test code = 415) EOSINOPHILS ABSOLUTE COUNT 0.22 K/ L 0.00-0.50 (BEAKER) (test code = 416) BASOPHILS ABSOLUTE COUNT (BEAKER) 0.01 K/ L 0.00-0.20 (test code = 417) IMMATURE GRANULOCYTES-RELATIVE 0 % 0-0 PERCENT (BEAKER) (test code = 2801) TISSUE [id number] 15:03:00Surgical Pathology Report Case: [id number] Authorizing Provider: Lucas Atkins MD Collected: 12/31/2018 1402 Ordering Location: [address] MED/SURG Received: 01/02/2019 1312 Pathologist: Diony Medina MD Specimen: Gastric, biopsy A. STOMACH, BIOPSY:- OXYNTIC-TYPE MUCOSA WITH MILD CHRONIC INACTIVE GASTRITIS AND PATCHY EROSIONS - NEGATIVE FOR IN TESTINAL METAPLASIA, DYSPLASIA, AND MALIGNANCY - NEGATIVE FOR H. PYLORI ON WARTHIN-STARRY SPECIAL STAIN Signing Pathologist Direct Phone Line: [phone] signed by Diony Medina MD on 01/05/2019 at 3:03 PMLegacy Healthe deeper levels [id number], [id number] paperwork, container, and cassette are all labeled [id number].The specimen is received in formalin in a single container labeled with the patient's name (MARNIE) and medical record number.A. The specimen labeled "gastric" consists of 3 fragments of thompson-white tissue measuring 0.2-0.4 cm in greatest dimension. The specimen is entirely submitted in a single cassette labeled A1.Microscopic examination is performed and is incorporated in the diagnostic line.The interpretation of this case included the use of immunohistochemistry or special stains. Immunohistochemistry technical testing was performed at [facility], Pathology Laboratory where it was developed and its performance characteristics were determined. It has not been cleared or approved by the U.S. Food and Drug Administration. The FDA has determined that such clearance or approval is not necessary. The test is used for clinical purposes. It should not be regarded as investigational or for research. This laboratory is certified under the Clinical Laboratory Improvement Amendments of 1988 (CLIA-88) as qualified to perform high complexity clinical laboratory testing.[facility], Department of Pathology, [address] [place] [address], Wreqkj [facility], Department of Pathology, [address] [place] [address], [facility], [address] [place] [address], WNSTN CULTURE + SHIGA [id number] 09:32:00 Test Item Value Reference Range Interpretation Comments CULTURE (BEAKER) No Salmonella, Shigella (test code = 1095) or Campylobacter isolated BASIC METABOLIC [id number] 04:48:00 Test Item Value Reference Range Interpretation Comments SODIUM (BEAKER) 140 meq/L 135-148 (test code = 381) POTASSIUM (BEAKER) 3.8 meq/L 3.6-5.5 (test code = 379) CHLORIDE (BEAKER) 103 meq/L 98-106 (test code = 382) CO2 (BEAKER) (test 28 meq/L 20-29 code = 355) BLOOD UREA NITROGEN 14 mg/dL 10-26 (BEAKER) (test code = 354) CREATININE (BEAKER) 0.79 mg/dL 0.50-1.20 (test code = 358) GLUCOSE RANDOM 112 mg/dL 70-110 H (BEAKER) (test code = 652) CALCIUM (BEAKER) 9.2 mg/dL 8.5-10.5 (test code = 697) EGFR (BEAKER) (test mL/min/1.73 INSUFFIC IENT CLINICAL code = 1092) sq m DATA TO CALCULA TE ESTIMATED GFR. CBC W/PLT COUNT & AUTO [id number] 04:35:00 Test Item Value Reference Range Interpretation Comments WHITE BLOOD CELL COUNT (BEAKER) 5.3 K/ L 4.0-10.0 (test code = 775) RED BLOOD CELL COUNT (BEAKER) 4.64 M/ L 4.20-5.80 (test code = 761) HEMOGLOBIN (BEAKER) (test code = 12.8 GM/DL 13.0-16.8 L 410) HEMATOCRIT (BEAKER) (test code = 38.9 % 36.0-50.0 411) MEAN CORPUSCULAR VOLUME (BEAKER) 83.8 fL 82.0-99.0 (test code = 753) MEAN CORPUSCULAR HEMOGLOBIN 27.6 pg 27.0-33.0 (BEAKER) (test code = 751) MEAN CORPUSCULAR HEMOGLOBIN CONC 32.9 GM/DL 32.0-36.0 (BEAKER) (test code = 752) RED CELL DISTRIBUTION WIDTH 12.7 % 12.0-15.0 (BEAKER) (test code = 412) PLATELET COUNT (BEAKER) (test 246 K/CU MM 150-430 code = 756) MEAN PLATELET VOLUME (BEAKER) 9.1 fL 6.0-11.5 (test code = 754) NUCLEATED RED BLOOD CELLS 0 /100 WBC 0-0 (BEAKER) (test code = 413) NEUTROPHILS RELATIVE PERCENT 51 % (BEAKER) (test code = 429) LYMPHOCYTES RELATIVE PERCENT 35 % (BEAKER) (test code = 430) MONOCYTES RELATIVE PERCENT 13 % (BEAKER) (test code = 431) EOSINOPHILS RELATIVE PERCENT 1 % (BEAKER) (test code = 432) BASOPHILS RELATIVE PERCENT 0 % (BEAKER) (test code = 437) NEUTROPHILS ABSOLUTE COUNT 2.69 K/ L 1.80-8.00 (BEAKER) (test code = 670) LYMPHOCYTES ABSOLUTE COUNT 1.85 K/ L 1.48-4.50 (BEAKER) (test code = 414) MONOCYTES ABSOLUTE COUNT (BEAKER) 0.68 K/ L 0.00-1.30 (test code = 415) EOSINOPHILS ABSOLUTE COUNT 0.05 K/ L 0.00-0.50 (BEAKER) (test code = 416) BASOPHILS ABSOLUTE COUNT (BEAKER) 0.01 K/ L 0.00-0.20 (test code = 417) IMMATURE GRANULOCYTES-RELATIVE 1 % 0-0 H PERCENT (BEAKER) (test code = 2801) BASIC METABOLIC [id number] 05:27:00 Test Item Value Reference Range Interpretation Comments SODIUM (BEAKER) 138 meq/L 135-148 (test code = 381) POTASSIUM (BEAKER) 4.0 meq/L 3.6-5.5 (test code = 379) CHLORIDE (BEAKER) 102 meq/L 98-106 (test code = 382) CO2 (BEAKER) (test 25 meq/L 20-29 code = 355) BLOOD UREA NITROGEN 16 mg/dL 10-26 (BEAKER) (test code = 354) CREATININE (BEAKER) 0.82 mg/dL 0.50-1.20 (test code = 358) GLUCOSE RANDOM 163 mg/dL 70-110 H (BEAKER) (test code = 652) CALCIUM (BEAKER) 9.4 mg/dL 8.5-10.5 (test code = 697) EGFR (BEAKER) (test mL/min/1.73 INSUFFIC IENT CLINICAL code = 1092) sq m DATA TO CALCULA TE ESTIMATED GFR. CBC W/PLT COUNT & AUTO [id number] 04:58:00 Test Item Value Reference Range Interpretation Comments WHITE BLOOD CELL COUNT (BEAKER) 4.5 K/ L 4.0-10.0 (test code = 775) RED BLOOD CELL COUNT (BEAKER) 4.76 M/ L 4.20-5.80 (test code = 761) HEMOGLOBIN (BEAKER) (test code = 13.3 GM/DL 13.0-16.8 410) HEMATOCRIT (BEAKER) (test code = 39.6 % 36.0-50.0 411) MEAN CORPUSCULAR VOLUME (BEAKER) 83.2 fL 82.0-99.0 (test code = 753) MEAN CORPUSCULAR HEMOGLOBIN 27.9 pg 27.0-33.0 (BEAKER) (test code = 751) MEAN CORPUSCULAR HEMOGLOBIN CONC 33.6 GM/DL 32.0-36.0 (BEAKER) (test code = 752) RED CELL DISTRIBUTION WIDTH 12.8 % 12.0-15.0 (BEAKER) (test code = 412) PLATELET COUNT (BEAKER) (test 238 K/CU MM 150-430 code = 756) MEAN PLATELET VOLUME (BEAKER) 9.1 fL 6.0-11.5 (test code = 754) NUCLEATED RED BLOOD CELLS 0 /100 WBC 0-0 (BEAKER) (test code = 413) NEUTROPHILS RELATIVE PERCENT 70 % (BEAKER) (test code = 429) LYMPHOCYTES RELATIVE PERCENT 16 % (BEAKER) (test code = 430) MONOCYTES RELATIVE PERCENT 13 % (BEAKER) (test code = 431) EOSINOPHILS RELATIVE PERCENT 0 % (BEAKER) (test code = 432) BASOPHILS RELATIVE PERCENT 0 % (BEAKER) (test code = 437) NEUTROPHILS ABSOLUTE COUNT 3.13 K/ L 1.80-8.00 (BEAKER) (test code = 670) LYMPHOCYTES ABSOLUTE COUNT 0.71 K/ L 1.48-4.50 L (BEAKER) (test code = 414) MONOCYTES ABSOLUTE COUNT (BEAKER) 0.57 K/ L 0.00-1.30 (test code = 415) EOSINOPHILS ABSOLUTE COUNT 0.01 K/ L 0.00-0.50 (BEAKER) (test code = 416) BASOPHILS ABSOLUTE COUNT (BEAKER) 0.00 K/ L 0.00-0.20 (test code = 417) IMMATURE GRANULOCYTES-RELATIVE 1 % 0-0 H PERCENT (BEAKER) (test code = 2801) SHIGA TOXIN [id number] 15:33:00 Test Item Value Reference Range Interpretation Comments SHIGA TOXIN 1 (BEAKER) (test Not detected Not detected code = 2177) SHIGA TOXIN 2 (BEAKER) (test Not detected Not detected code = 2179) STOOL PATH [id number] 10:21:00 Test Item Value Reference Range Interpretation Comments PATHOGEN EXAM CHARGED (BEAKER) (test Done code = 2381) BASIC METABOLIC [id number] 06:08:00 Test Item Value Reference Range Interpretation Comments SODIUM (BEAKER) 139 meq/L 135-148 (test code = 381) POTASSIUM (BEAKER) 4.4 meq/L 3.6-5.5 (test code = 379) CHLORIDE (BEAKER) 104 meq/L 98-106 (test code = 382) CO2 (BEAKER) (test 26 meq/L 20-29 code = 355) BLOOD UREA NITROGEN 13 mg/dL 10-26 (BEAKER) (test code = 354) CREATININE (BEAKER) 0.85 mg/dL 0.50-1.20 (test code = 358) GLUCOSE RANDOM 120 mg/dL 70-110 H (BEAKER) (test code = 652) CALCIUM (BEAKER) 9.4 mg/dL 8.5-10.5 (test code = 697) EGFR (BEAKER) (test mL/min/1.73 INSUFFIC IENT CLINICAL code = 1092) sq m DATA TO CALCULA TE ESTIMATED GFR. CBC W/PLT COUNT & AUTO [id number] 05:49:00 Test Item Value Reference Range Interpretation Comments WHITE BLOOD CELL COUNT (BEAKER) 6.0 K/ L 4.0-10.0 (test code = 775) RED BLOOD CELL COUNT (BEAKER) 4.74 M/ L 4.20-5.80 (test code = 761) HEMOGLOBIN (BEAKER) (test code = 13.1 GM/DL 13.0-16.8 410) HEMATOCRIT (BEAKER) (test code = 39.7 % 36.0-50.0 411) MEAN CORPUSCULAR VOLUME (BEAKER) 83.8 fL 82.0-99.0 (test code = 753) MEAN CORPUSCULAR HEMOGLOBIN 27.6 pg 27.0-33.0 (BEAKER) (test code = 751) MEAN CORPUSCULAR HEMOGLOBIN CONC 33.0 GM/DL 32.0-36.0 (BEAKER) (test code = 752) RED CELL DISTRIBUTION WIDTH 13.1 % 12.0-15.0 (BEAKER) (test code = 412) PLATELET COUNT (BEAKER) (test 258 K/CU MM 150-430 code = 756) MEAN PLATELET VOLUME (BEAKER) 9.0 fL 6.0-11.5 (test code = 754) NUCLEATED RED BLOOD CELLS 0 /100 WBC 0-0 (BEAKER) (test code = 413) NEUTROPHILS RELATIVE PERCENT 78 % (BEAKER) (test code = 429) LYMPHOCYTES RELATIVE PERCENT 12 % (BEAKER) (test code = 430) MONOCYTES RELATIVE PERCENT 9 % (BEAKER) (test code = 431) EOSINOPHILS RELATIVE PERCENT 0 % (BEAKER) (test code = 432) BASOPHILS RELATIVE PERCENT 0 % (BEAKER) (test code = 437) NEUTROPHILS ABSOLUTE COUNT 4.67 K/ L 1.80-8.00 (BEAKER) (test code = 670) LYMPHOCYTES ABSOLUTE COUNT 0.71 K/ L 1.48-4.50 L (BEAKER) (test code = 414) MONOCYTES ABSOLUTE COUNT (BEAKER) 0.55 K/ L 0.00-1.30 (test code = 415) EOSINOPHILS ABSOLUTE COUNT 0.01 K/ L 0.00-0.50 (BEAKER) (test code = 416) BASOPHILS ABSOLUTE COUNT (BEAKER) 0.01 K/ L 0.00-0.20 (test code = 417) IMMATURE GRANULOCYTES-RELATIVE 1 % 0-0 H PERCENT (BEAKER) (test code = 2801) C. DIFFICILE GDH [id number] 18:22:00 Test Item Value Reference Range Interpretation Comments CDT TOXIN (test code Positive Negative A = [id number]) CDT GDH ANTIGEN Positive Negative A Confirms Rupali stridium (test code = difficile-assoc iated [id number]) infection.First line therapy - oral Vancomycin. Co ntinue enteric isolati on until 72 hours after treatment is discontinued and symptoms have r esolved. Testing performed by [employer] Rapid Cassette Assay. For GDH, published sensitivity of the assay is 98.7% compared to cytotoxicity testing. For Toxin AB, published sensitivity is 87.8% and specificity 99.4% compared to cytotoxicity testing.Verification of kit performance was done by the [facility] Microbiology Lab prior to clinical use.URINALYSIS W/ REFLEX URINE [id number] 15:03:00 Test Item Value Reference Range Interpretation Comments COLOR (BEAKER) (test code = Yellow 470) CLARITY (BEAKER) (test code = Clear 469) SPECIFIC GRAVITY UA (BEAKER) <= 1.001-1.035 (test code = 468) PH UA (BEAKER) (test code = 5.5 5.0-8.0 467) PROTEIN UA (BEAKER) (test code Negative Negative = 464) GLUCOSE UA (BEAKER) (test code Negative Negative = 365) KETONES UA (BEAKER) (test code Negative Negative = 371) BILIRUBIN UA (BEAKER) (test Negative Negative code = 462) BLOOD UA (BEAKER) (test code = Negative Negative 461) NITRITE UA (BEAKER) (test code Negative Negative = 465) LEUKOCYTE ESTERASE UA (BEAKER) Negative Negative (test code = 466) UROBILINOGEN UA (BEAKER) (test 0.2 mg/dL 0.2-1.0 code = 463) BACTERIA (BEAKER) (test code = None Seen 517) RBC UA-MANUAL (BEAKER) (test None Seen /HPF code = 1659) WBC UA-MANUAL (BEAKER) (test <5 /HPF code = 1661) SOURCE(BEAKER) (test code = 2795) CT, CHEST, WITH [id number] 13:49:00Reason for exam:->DIARRHEApt was just released from here last week but is still having diarrhea for the past month, pt also complains of having breathing difficulty and pain when he takes in a deep breath, has been having to use his nebulizer with little reliefWhat is the patient's sedation requirement?->No SedationFINAL REPORT CT CHEST, ABDOMEN, AND PELVIS WITH IV CONTRAST History provided: Abdominal pain, diarrhea COMPARISON STUDY: Abdominal and pelvic CT study of 12/14/2018 TECHNIQUE: Spiral CT cuts were performed through the chest, abdomen, and pelvis with IV contrast. FINDINGS: Lungs are fully expanded and clear. Heart is normal in size. No pleural or pericardial effusion. No hilar or mediastinal mass or lymphadenopathy. Liver normal in size and attenuation. Spleen is enlarged to 14.4cm in greatest span with no focal abnormality. Normal-appearing pancreas. Gallbladder is normal in size. Normal appearing adrenals and kidneys. Normal caliber abdominal aorta with widely patent celiac and SMA. Previously noted small bowel dilatation has markedly improved, with minimally prominent fluid-filled small bowel loops in the left upper quadrant and midabdomen, but no signs of mechanical obstruction. Colon is normal in caliber throughout with no CT evidence for colitis. No signs of diverticular disease. No pelvic mass, pelvic fluid collection, or pelvic inflammation. IMPRESSION: Improvementin small bowel distention when compared with prior study of 12/14/2018. No signs of mechanical bowel obstruction. No acute findings within the chest. COMMENT: This exam was performed according to our departmental dose-optimization program, which includes automated exposure control, adjustment of the mA and/or kV according to patient size and/or use of iterative reconstruction technique. Signed: Leoncio Sloan MDReport Verified Date/Time: 12/29/2018 13:49:58 Reading Location: [facility] Diagnostic Imaging Reading Room - [facility] 1.310.12 CT, ABDOMEN 2018-12-29 13:49:00Reason for exam:->DIARRHEApt was just released from here last week but is still having diarrhea for the past month, pt also complains of having breathing difficulty and pain when he takes in a deep breath, has been having to use his nebulizer with little reliefWhat is the patient's sedation requirement?->No SedationFINAL REPORT CT CHEST, ABDOMEN, AND PELVIS WITH IV CONTRAST History provided:Abdominal pain, diarrhea COMPARISON STUDY: Abdominal and pelvic CT study of 12/14/2018 TECHNIQUE: Spiral CT cuts were performed through the chest, abdomen, and pelvis with IV contrast. FINDINGS: Lungs are fully expanded and clear. Heart is normal in size. No pleural or pericardial effusion. No hilar or mediastinal mass or lymphadenopathy. Liver normal in size and attenuation. Spleen is enlarged to 14.4cm in greatest span with no focal abnormality. Normal-appearing pancreas. Gallbladder is normal in size. Normal appearing adrenals and kidneys. Normal caliber abdominal aorta with widely patent celiac and SMA. Previously noted small bowel dilatation has markedly improved, with minimally prominent fluid- filled small bowel loops in the left upper quadrant and midabdomen, but no signs of mechanical obstruction. Colon is normal in caliber throughout with no CT evidence for colitis. No signs of diverticular disease. No pelvic mass, pelvic fluid collection, or pelvic inflammation. IMPRESSION: Improvementin small bowel distention when compared with prior study of 12/14/2018. No signs of mechanical bowel obstruction. No acute findings within the chest. COMMENT: This exam was performed according to our departmental dose-optimization program, which includes automated exposure control, adjustment of the mA and/or kV according to patient size and/or use of iterative reconstruction technique. Signed: Liborio Sloan ilip MDReport Verified Date/Time: 12/29/2018 13:49:58 Reading Location: [facility] Diagnostic Imaging Reading Room - [facility] 1310.12 COMPREHENSIVE METABOLIC [id number] 13:02:00 Test Item Value Reference Range Interpretation Comments TOTAL PROTEIN 7.7 gm/dL 6.0-8.5 (BEAKER) (test code = 770) ALBUMIN (BEAKER) 4.4 g/dL 3.5-5.0 (test code = 1145) ALKALINE PHOSPHATASE 78 U/L 30-115 (BEAKER) (test code = 346) BILIRUBIN TOTAL 0.7 mg/dL 0.1-1.2 (BEAKER) (test code = 377) SODIUM (BEAKER) 137 meq/L 135-148 (test code = 381) POTASSIUM (BEAKER) 3.8 meq/L 3.6-5.5 (test code = 379) CHLORIDE (BEAKER) 102 meq/L 98-106 (test code = 382) CO2 (BEAKER) (test 22 meq/L 20-29 code = 355) BLOOD UREA NITROGEN 24 mg/dL 10-26 (BEAKER) (test code = 354) CREATININE (BEAKER) 1.37 mg/dL 0.50-1.20 H (test code = 358) GLUCOSE RANDOM 102 mg/dL 70-110 (BEAKER) (test code = 652) CALCIUM (BEAKER) 9.9 mg/dL 8.5-10.5 (test code = 697) AST (SGOT) (BEAKER) 32 U/L 5-40 (test code = 353) ALT (SGPT) (BEAKER) 20 U/L 5-50 (test code = 347) EGFR (BEAKER) (test mL/min/1.73 INSUFFIC IENT code = 1092) sq m CLINICAL DATA T O CALCULATE ESTIM ATED GFR. [id number] 13:01:00 Test Item Value Reference Range Interpretation Comments LIPASE (BEAKER) (test code = 749) 16 U/L 6-51 CBC W/PLT COUNT & AUTO [id number] 12:47:00 Test Item Value Reference Range Interpretation Comments WHITE BLOOD CELL COUNT (BEAKER) 6.8 K/ L 4.0-10.0 (test code = 775) RED BLOOD CELL COUNT (BEAKER) 5.28 M/ L 4.20-5.80 (test code = 761) HEMOGLOBIN (BEAKER) (test code = 14.6 GM/DL 13.0-16.8 410) HEMATOCRIT (BEAKER) (test code = 43.4 % 36.0-50.0 411) MEAN CORPUSCULAR VOLUME (BEAKER) 82.2 fL 82.0-99.0 (test code = 753) MEAN CORPUSCULAR HEMOGLOBIN 27.7 pg 27.0-33.0 (BEAKER) (test code = 751) MEAN CORPUSCULAR HEMOGLOBIN CONC 33.6 GM/DL 32.0-36.0 (BEAKER) (test code = 752) RED CELL DISTRIBUTION WIDTH 12.8 % 12.0-15.0 (BEAKER) (test code = 412) PLATELET COUNT (BEAKER) (test 260 K/CU MM 150-430 code = 756) MEAN PLATELET VOLUME (BEAKER) 8.8 fL 6.0-11.5 (test code = 754) NUCLEATED RED BLOOD CELLS 0 /100 WBC 0-0 (BEAKER) (test code = 413) NEUTROPHILS RELATIVE PERCENT 59 % (BEAKER) (test code = 429) LYMPHOCYTES RELATIVE PERCENT 13 % (BEAKER) (test code = 430) MONOCYTES RELATIVE PERCENT 15 % (BEAKER) (test code = 431) EOSINOPHILS RELATIVE PERCENT 12 % (BEAKER) (test code = 432) BASOPHILS RELATIVE PERCENT 0 % (BEAKER) (test code = 437) NEUTROPHILS ABSOLUTE COUNT 3.97 K/ L 1.80-8.00 (BEAKER) (test code = 670) LYMPHOCYTES ABSOLUTE COUNT 0.90 K/ L 1.48-4.50 L (BEAKER) (test code = 414) MONOCYTES ABSOLUTE COUNT (BEAKER) 1.02 K/ L 0.00-1.30 (test code = 415) EOSINOPHILS ABSOLUTE COUNT 0.79 K/ L 0.00-0.50 H (BEAKER) (test code = 416) BASOPHILS ABSOLUTE COUNT (BEAKER) 0.01 K/ L 0.00-0.20 (test code = 417) IMMATURE GRANULOCYTES-RELATIVE 1 % 0-0 H PERCENT (BEAKER) (test code = 2801) STOOL CULTURE + SHIGA [id number] 14:00:00 Test Item Value Reference Range Interpretation Comments CULTURE (BEAKER) No Salmonella, Shigella (test code = 1095) or Campylobacter isolated SHIGA TOXIN [id number] 14:32:00 Test Item Value Reference Range Interpretation Comments SHIGA TOXIN 1 (BEAKER) (test Not detected Not detected code = 2177) SHIGA TOXIN 2 (BEAKER) (test Not detected Not detected code = 2179) STOOL PATH [id number] 09:14:00 Test Item Value Reference Range Interpretation Comments PATHOGEN EXAM CHARGED (BEAKER) (test Done code = 2381) CBC W/PLT COUNT & AUTO [id number] 06:44:00 Test Item Value Reference Range Interpretation Comments WHITE BLOOD CELL COUNT (BEAKER) 9.9 K/ L 4.0-10.0 (test code = 775) RED BLOOD CELL COUNT (BEAKER) 4.44 M/ L 4.20-5.80 (test code = 761) HEMOGLOBIN (BEAKER) (test code = 12.4 GM/DL 13.0-16.8 L 410) HEMATOCRIT (BEAKER) (test code = 36.8 % 36.0-50.0 411) MEAN CORPUSCULAR VOLUME (BEAKER) 82.9 fL 82.0-99.0 (test code = 753) MEAN CORPUSCULAR HEMOGLOBIN 27.9 pg 27.0-33.0 (BEAKER) (test code = 751) MEAN CORPUSCULAR HEMOGLOBIN CONC 33.7 GM/DL 32.0-36.0 (BEAKER) (test code = 752) RED CELL DISTRIBUTION WIDTH 13.0 % 12.0-15.0 (BEAKER) (test code = 412) PLATELET COUNT (BEAKER) (test 235 K/CU MM 150-430 code = 756) MEAN PLATELET VOLUME (BEAKER) 8.7 fL 6.0-11.5 (test code = 754) NUCLEATED RED BLOOD CELLS 0 /100 WBC 0-0 (BEAKER) (test code = 413) (MANUAL DIFFERENTIAL)2018-12-21 06:44:00 Test Item Value Reference Range Interpretation Comments NEUTROPHILS - REL (DIFF) (BEAKER) 61 % (test code = 1359) LYMPHOCYTES - REL (DIFF) (BEAKER) 18 % (test code = 1360) MONOCYTES - REL (DIFF) (BEAKER) 7 % (test code = 1361) EOSINOPHILS - REL (DIFF) (BEAKER) 4 % (test code = 1362) BANDS - REL (DIFF) (BEAKER) (test 10 % 0-10 code = 1348) NEUTROPHILS - ABS (DIFF) (BEAKER) 6.04 K/ L 1.80-8.00 (test code = 1365) LYMPHOCYTES - ABS (DIFF) (BEAKER) 1.78 K/ L 1.48-4.50 (test code = 1366) MONOCYTES - ABS (DIFF) (BEAKER) 0.69 K/ L 0.00-1.30 (test code = 1367) EOSINOPHILS - ABS (DIFF) (BEAKER) 0.40 K/ L 0.00-0.50 (test code = 1368) BANDS-ABS (DIFF) (BEAKER) (test 1.0 K/ L 0.0-0.8 H code = 1349) TOTAL COUNTED (BEAKER) (test code = 100 1351) BANDS + SEGMENTED NEUTROPHILS 7.03 (BEAKER) (test code = 1352) WBC MORPHOLOGY (BEAKER) (test code Normal = 487) PLT MORPHOLOGY (BEAKER) (test code Normal = 486) RBC MORPHOLOGY (BEAKER) (test code Normal = 762) BASIC METABOLIC [id number] 06:28:00 Test Item Value Reference Range Interpretation Comments SODIUM (BEAKER) 140 meq/L 135-148 (test code = 381) POTASSIUM (BEAKER) 3.6 meq/L 3.6-5.5 (test code = 379) CHLORIDE (BEAKER) 106 meq/L 98-106 (test code = 382) CO2 (BEAKER) (test 25 meq/L 20-29 code = 355) BLOOD UREA NITROGEN 7 mg/dL 10-26 L (BEAKER) (test code = 354) CREATININE (BEAKER) 0.82 mg/dL 0.50-1.20 (test code = 358) GLUCOSE RANDOM 101 mg/dL 70-110 (BEAKER) (test code = 652) CALCIUM (BEAKER) 9.0 mg/dL 8.5-10.5 (test code = 697) EGFR (BEAKER) (test mL/min/1.73 INSUFFIC IENT CLINICAL code = 1092) sq m DATA TO CALCULA TE ESTIMATED GFR. BASIC METABOLIC [id number] 04:50:00 Test Item Value Reference Range Interpretation Comments SODIUM (BEAKER) 139 meq/L 135-148 (test code = 381) POTASSIUM (BEAKER) 3.3 meq/L 3.6-5.5 L (test code = 379) CHLORIDE (BEAKER) 107 meq/L 98-106 H (test code = 382) CO2 (BEAKER) (test 25 meq/L 20-29 code = 355) BLOOD UREA NITROGEN 6 mg/dL 10-26 L (BEAKER) (test code = 354) CREATININE (BEAKER) 0.81 mg/dL 0.50-1.20 (test code = 358) GLUCOSE RANDOM 91 mg/dL 70-110 (BEAKER) (test code = 652) CALCIUM (BEAKER) 8.9 mg/dL 8.5-10.5 (test code = 697) EGFR (BEAKER) (test mL/min/1.73 INSUFFIC IENT CLINICAL code = 1092) sq m DATA TO CALCULA TE ESTIMATED GFR. CBC W/PLT COUNT & AUTO [id number] 04:42:00 Test Item Value Reference Range Interpretation Comments WHITE BLOOD CELL COUNT (BEAKER) 9.4 K/ L 4.0-10.0 (test code = 775) RED BLOOD CELL COUNT (BEAKER) 4.35 M/ L 4.20-5.80 (test code = 761) HEMOGLOBIN (BEAKER) (test code = 12.2 GM/DL 13.0-16.8 L 410) HEMATOCRIT (BEAKER) (test code = 37.3 % 36.0-50.0 411) MEAN CORPUSCULAR VOLUME (BEAKER) 85.7 fL 82.0-99.0 (test code = 753) MEAN CORPUSCULAR HEMOGLOBIN 28.0 pg 27.0-33.0 (BEAKER) (test code = 751) MEAN CORPUSCULAR HEMOGLOBIN CONC 32.7 GM/DL 32.0-36.0 (BEAKER) (test code = 752) RED CELL DISTRIBUTION WIDTH 12.9 % 12.0-15.0 (BEAKER) (test code = 412) PLATELET COUNT (BEAKER) (test 149 K/CU MM 150-430 L code = 756) MEAN PLATELET VOLUME (BEAKER) 9.4 fL 6.0-11.5 (test code = 754) NUCLEATED RED BLOOD CELLS 0 /100 WBC 0-0 (BEAKER) (test code = 413) NEUTROPHILS RELATIVE PERCENT 67 % (BEAKER) (test code = 429) LYMPHOCYTES RELATIVE PERCENT 15 % (BEAKER) (test code = 430) MONOCYTES RELATIVE PERCENT 8 % (BEAKER) (test code = 431) EOSINOPHILS RELATIVE PERCENT 4 % (BEAKER) (test code = 432) BASOPHILS RELATIVE PERCENT 1 % (BEAKER) (test code = 437) NEUTROPHILS ABSOLUTE COUNT 6.34 K/ L 1.80-8.00 (BEAKER) (test code = 670) LYMPHOCYTES ABSOLUTE COUNT 1.37 K/ L 1.48-4.50 L (BEAKER) (test code = 414) MONOCYTES ABSOLUTE COUNT (BEAKER) 0.74 K/ L 0.00-1.30 (test code = 415) EOSINOPHILS ABSOLUTE COUNT 0.40 K/ L 0.00-0.50 (BEAKER) (test code = 416) BASOPHILS ABSOLUTE COUNT (BEAKER) 0.06 K/ L 0.00-0.20 (test code = 417) IMMATURE GRANULOCYTES-RELATIVE 5 % 0-0 H PERCENT (BEAKER) (test code = 2801) BASIC METABOLIC [id number] 13:10:00 Test Item Value Reference Range Interpretation Comments SODIUM (BEAKER) 141 meq/L 135-148 (test code = 381) POTASSIUM (BEAKER) 3.5 meq/L 3.6-5.5 L (test code = 379) CHLORIDE (BEAKER) 109 meq/L 98-106 H (test code = 382) CO2 (BEAKER) (test 24 meq/L 20-29 code = 355) BLOOD UREA NITROGEN 8 mg/dL 10-26 L (BEAKER) (test code = 354) CREATININE (BEAKER) 0.84 mg/dL 0.50-1.20 (test code = 358) GLUCOSE RANDOM 94 mg/dL 70-110 (BEAKER) (test code = 652) CALCIUM (BEAKER) 9.3 mg/dL 8.5-10.5 (test code = 697) EGFR (BEAKER) (test mL/min/1.73 INSUFFIC IENT CLINICAL code = 1092) sq m DATA TO CALCULA TE ESTIMATED GFR. HEPATOBILIARY IMAGING W/ [id number] 13:08:00Reason for exam:->Acute CholeyFINAL REPORT PROCEDURE: HEPATOBILIARY SCAN with Sincalide Stimulation CPT CODE: 28220 INDICATION: Abdominal pain PROTOCOL: 6.9 mCi of Tc-99m mebrofenin was injected intravenously. Images of the upper abdomen were obtained for approximately 60 minutes after t racer injection. 2.2 micrograms of sincalide was then injected intravenously over 10 minutes followed by imaging for an additional 20 minutes. FINDINGS: Initial tracer uptake into the liver is physiological. Subsequent tracer clearance from the liver proceeds normally. There is good visualization of the extrahepatic biliary duct and the gallbladder, and the tracer appears appropriately in the small bowel. Following injection of sincalide, serial images show essentially no emptying of gallbladder contents into the small bowel. There is less than 5% emptying of the gallbladder (Lower limit of normal = 35%). IMPRESSION: There is normal gallbladder filling but markedly decreased emptying in response to sincalide stimulation. This pattern does not suggest acute cholecystitis or other biliary obstruction, but is consistent with biliary dyskinesia. Signed: Nayely Vickers MDReport Verified Date/Time: 12/19/2018 13:08:04 Reading Location: [address] Reading Room CBC W/PLT COUNT & AUTO [id number] 12:55:00 Test Item Value Reference Range Interpretation Comments WHITE BLOOD CELL COUNT (BEAKER) 9.4 K/ L 4.0-10.0 (test code = 775) RED BLOOD CELL COUNT (BEAKER) 4.89 M/ L 4.20-5.80 (test code = 761) HEMOGLOBIN (BEAKER) (test code = 13.8 GM/DL 13.0-16.8 410) HEMATOCRIT (BEAKER) (test code = 40.0 % 36.0-50.0 411) MEAN CORPUSCULAR VOLUME (BEAKER) 81.8 fL 82.0-99.0 L (test code = 753) MEAN CORPUSCULAR HEMOGLOBIN 28.2 pg 27.0-33.0 (BEAKER) (test code = 751) MEAN CORPUSCULAR HEMOGLOBIN CONC 34.5 GM/DL 32.0-36.0 (BEAKER) (test code = 752) RED CELL DISTRIBUTION WIDTH 12.6 % 12.0-15.0 (BEAKER) (test code = 412) PLATELET COUNT (BEAKER) (test 282 K/CU MM 150-430 code = 756) MEAN PLATELET VOLUME (BEAKER) 9.0 fL 6.0-11.5 (test code = 754) NUCLEATED RED BLOOD CELLS 0 /100 WBC 0-0 (BEAKER) (test code = 413) NEUTROPHILS RELATIVE PERCENT 68 % (BEAKER) (test code = 429) LYMPHOCYTES RELATIVE PERCENT 15 % (BEAKER) (test code = 430) MONOCYTES RELATIVE PERCENT 7 % (BEAKER) (test code = 431) EOSINOPHILS RELATIVE PERCENT 5 % (BEAKER) (test code = 432) BASOPHILS RELATIVE PERCENT 0 % (BEAKER) (test code = 437) NEUTROPHILS ABSOLUTE COUNT 6.40 K/ L 1.80-8.00 (BEAKER) (test code = 670) LYMPHOCYTES ABSOLUTE COUNT 1.42 K/ L 1.48-4.50 L (BEAKER) (test code = 414) MONOCYTES ABSOLUTE COUNT (BEAKER) 0.70 K/ L 0.00-1.30 (test code = 415) EOSINOPHILS ABSOLUTE COUNT 0.46 K/ L 0.00-0.50 (BEAKER) (test code = 416) BASOPHILS ABSOLUTE COUNT (BEAKER) 0.01 K/ L 0.00-0.20 (test code = 417) IMMATURE GRANULOCYTES-RELATIVE 5 % 0-0 H PERCENT (BEAKER) (test code = 2801) U/S, ABDOMINAL, [id number] 19:51:00Abdomen limited area? Add comment if clarification is needed.->Right upper quadrantReason for exam:->nausea FINAL REPORT History: Nausea Abdominal ultrasound dated 12/14/2018 Comparison:None Comment: Real-time transabdominal ultrasound of the right upper quadrant abdomen was performed. Liver: 17.4 cm , slightly prominent. Normal echogenicity. No focal lesions. Gallbladder: No visible gallstones the transverse diameter of the gallbladder lumen is 3.4 cm. The gallbladder wall is thickened, measuring 8 to 9 mm. There is pericholecystic fluid versus gallbladder wall edema. A sonographic Minor's sign was elicited Biliary tree: No intrahepatic ductal dilatation. CBD: 4 mm. MPV: 11 mm Pancreas: Partially obscured by bowel gas but unremarkable where visualized Right kidney: 11.7 x 5.0 x 4.6 cm. Normal echogenicity. No ascites is present in the abdomen. The visualized abdominal aorta is normal in caliber. The IVC and Hepatic veins are patent. Impression: Gallbladder wall thickening and pericholecystic fluid versus edema with a positive sonographic Minor sign. No gallstones are identified. This is nonspecific and could relate to acalculus gallbladder disease, infectious hepatitis or relate to fluid balance. Alternatively, an occult cystic duct stone could be present and this could reflect acute cholecystitis. Further evaluation with hepatobiliary nuclear medicine imaging can be obtained, as indicated. Signed: Paolo Peacock MDReport Verified Date/Time: 12/18/2018 19:51:57 Reading Location: [address] Reading Room [id number] 18:11:00 Test Item Value Reference Range Interpretation Comments POTASSIUM (BEAKER) (test code = 3.2 meq/L 3.6-5.5 L 379) CBC W/PLT COUNT & AUTO [id number] 06:21:00 Test Item Value Reference Range Interpretation Comments WHITE BLOOD CELL COUNT (BEAKER) 7.2 K/ L 4.0-10.0 (test code = 775) RED BLOOD CELL COUNT (BEAKER) 4.24 M/ L 4.20-5.80 (test code = 761) HEMOGLOBIN (BEAKER) (test code = 12.0 GM/DL 13.0-16.8 L 410) HEMATOCRIT (BEAKER) (test code = 34.5 % 36.0-50.0 L 411) MEAN CORPUSCULAR VOLUME (BEAKER) 81.4 fL 82.0-99.0 L (test code = 753) MEAN CORPUSCULAR HEMOGLOBIN 28.3 pg 27.0-33.0 (BEAKER) (test code = 751) MEAN CORPUSCULAR HEMOGLOBIN CONC 34.8 GM/DL 32.0-36.0 (BEAKER) (test code = 752) RED CELL DISTRIBUTION WIDTH 12.5 % 12.0-15.0 (BEAKER) (test code = 412) PLATELET COUNT (BEAKER) (test 240 K/CU MM 150-430 code = 756) MEAN PLATELET VOLUME (BEAKER) 8.9 fL 6.0-11.5 (test code = 754) NUCLEATED RED BLOOD CELLS 0 /100 WBC 0-0 (BEAKER) (test code = 413) (MANUAL DIFFERENTIAL)2018-12-18 06:21:00 Test Item Value Reference Range Interpretation Comments NEUTROPHILS - REL (DIFF) (BEAKER) 53 % (test code = 1359) LYMPHOCYTES - REL (DIFF) (BEAKER) 32 % (test code = 1360) MONOCYTES - REL (DIFF) (BEAKER) 7 % (test code = 1361) EOSINOPHILS - REL (DIFF) (BEAKER) 8 % (test code = 1362) NEUTROPHILS - ABS (DIFF) (BEAKER) 3.82 K/ L 1.80-8.00 (test code = 1365) LYMPHOCYTES - ABS (DIFF) (BEAKER) 2.30 K/ L 1.48-4.50 (test code = 1366) MONOCYTES - ABS (DIFF) (BEAKER) 0.50 K/ L 0.00-1.30 (test code = 1367) EOSINOPHILS - ABS (DIFF) (BEAKER) 0.58 K/ L 0.00-0.50 H (test code = 1368) TOTAL COUNTED (BEAKER) (test code = 100 1351) WBC MORPHOLOGY (BEAKER) (test code Normal = 487) RBC MORPHOLOGY (BEAKER) (test code Normal = 762) LARGE PLT(BEAKER) (test code = Present 2156) COMPREHENSIVE METABOLIC [id number] 04:46:00 Test Item Value Reference Range Interpretation Comments TOTAL PROTEIN 5.5 gm/dL 6.0-8.5 L (BEAKER) (test code = 770) ALBUMIN (BEAKER) 3.2 g/dL 3.5-5.0 L (test code = 1145) ALKALINE PHOSPHATASE 57 U/L 30-115 (BEAKER) (test code = 346) BILIRUBIN TOTAL 0.2 mg/dL 0.1-1.2 (BEAKER) (test code = 377) SODIUM (BEAKER) 140 meq/L 135-148 (test code = 381) POTASSIUM (BEAKER) 2.8 meq/L 3.6-5.5 L (test code = 379) CHLORIDE (BEAKER) 109 meq/L 98-106 H (test code = 382) CO2 (BEAKER) (test 25 meq/L 20-29 code = 355) BLOOD UREA NITROGEN 9 mg/dL 10-26 L (BEAKER) (test code = 354) CREATININE (BEAKER) 0.81 mg/dL 0.50-1.20 (test code = 358) GLUCOSE RANDOM 105 mg/dL 70-110 (BEAKER) (test code = 652) CALCIUM (BEAKER) 8.5 mg/dL 8.5-10.5 (test code = 697) AST (SGOT) (BEAKER) 34 U/L 5-40 (test code = 353) ALT (SGPT) (BEAKER) 30 U/L 5-50 (test code = 347) EGFR (BEAKER) (test mL/min/1.73 INSUFFIC IENT code = 1092) sq m CLINICAL DATA T O CALCULATE ESTIM ATED GFR. C. DIFFICILE GDH [id number] 17:54:00 Test Item Value Reference Range Interpretation Comments CDT TOXIN (test code Negative Negative = [id number]) CDT GDH ANTIGEN (test Negative Negative No ind ication of code = [id number]) Clostridi um difficile infection and n o colonization. Discontinue ent jeanne isolation and t herapy. Testing performed by [employer] Rapid Cassette Assay. For GDH, published sensitivity of the assay is 98.7% compared to cytotoxicity testing. For Toxin AB, published sensitivity is 87.8% and specificity 99.4% compared to cytotoxicity testing.Verification of kit performance was done by the [facility] Microbiology Lab prior to clinical use.(MANUAL DIFFERENTIAL)2018-12-15 05:10:00 Test Item Value Reference Range Interpretation Comments NEUTROPHILS - REL (DIFF) (BEAKER) 27 % (test code = 1359) LYMPHOCYTES - REL (DIFF) (BEAKER) 14 % (test code = 1360) MONOCYTES - REL (DIFF) (BEAKER) 12 % (test code = 1361) EOSINOPHILS - REL (DIFF) (BEAKER) 5 % (test code = 1362) BASOPHILS - REL (DIFF) (BEAKER) 0 % (test code = 1363) METAMYELOCYTES-REL (DIFF) (BEAKER) 2 % 0-0 H (test code = 258) BANDS - REL (DIFF) (BEAKER) (test 40 % 0-10 H code = 1348) NEUTROPHILS - ABS (DIFF) (BEAKER) 2.32 K/ L 1.80-8.00 (test code = 1365) LYMPHOCYTES - ABS (DIFF) (BEAKER) 1.20 K/ L 1.48-4.50 L (test code = 1366) MONOCYTES - ABS (DIFF) (BEAKER) 1.03 K/ L 0.00-1.30 (test code = 1367) EOSINOPHILS - ABS (DIFF) (BEAKER) 0.43 K/ L 0.00-0.50 (test code = 1368) BASOPHILS - ABS (DIFF) (BEAKER) 0.00 K/ L 0.00-0.20 (test code = 1369) METAMYELOCTYES - ABS (DIFF) 0.17 K/ L 0.00-0.00 H (BEAKER) (test code = 261) BANDS-ABS (DIFF) (BEAKER) (test 3.4 K/ L 0.0-0.8 H code = 1349) TOTAL COUNTED (BEAKER) (test code = 100 1351) BANDS + SEGMENTED NEUTROPHILS 5.76 (BEAKER) (test code = 1352) WBC MORPHOLOGY (BEAKER) (test code Normal = 487) PLT MORPHOLOGY (BEAKER) (test code Normal = 486) RBC MORPHOLOGY (BEAKER) (test code Normal = 762) CBC W/PLT COUNT & AUTO [id number] 05:01:00 Test Item Value Reference Range Interpretation Comments WHITE BLOOD CELL COUNT (BEAKER) 8.6 K/ L 4.0-10.0 (test code = 775) RED BLOOD CELL COUNT (BEAKER) 6.11 M/ L 4.20-5.80 H (test code = 761) HEMOGLOBIN (BEAKER) (test code = 17.2 GM/DL 13.0-16.8 H 410) HEMATOCRIT (BEAKER) (test code = 49.9 % 36.0-50.0 411) MEAN CORPUSCULAR VOLUME (BEAKER) 81.7 fL 82.0-99.0 L (test code = 753) MEAN CORPUSCULAR HEMOGLOBIN 28.2 pg 27.0-33.0 (BEAKER) (test code = 751) MEAN CORPUSCULAR HEMOGLOBIN CONC 34.5 GM/DL 32.0-36.0 (BEAKER) (test code = 752) RED CELL DISTRIBUTION WIDTH 12.7 % 12.0-15.0 (BEAKER) (test code = 412) PLATELET COUNT (BEAKER) (test 301 K/CU MM 150-430 code = 756) MEAN PLATELET VOLUME (BEAKER) 8.8 fL 6.0-11.5 (test code = 754) NUCLEATED RED BLOOD CELLS 0 /100 WBC 0-0 (BEAKER) (test code = 413) COMPREHENSIVE METABOLIC [id number] 04:58:00 Test Item Value Reference Range Interpretation Comments TOTAL PROTEIN 5.9 gm/dL 6.0-8.5 L (BEAKER) (test code = 770) ALBUMIN (BEAKER) 3.4 g/dL 3.5-5.0 L (test code = 1145) ALKALINE PHOSPHATASE 39 U/L 30-115 (BEAKER) (test code = 346) BILIRUBIN TOTAL 0.3 mg/dL 0.1-1.2 (BEAKER) (test code = 377) SODIUM (BEAKER) 135 meq/L 135-148 (test code = 381) POTASSIUM (BEAKER) 3.6 meq/L 3.6-5.5 (test code = 379) CHLORIDE (BEAKER) 106 meq/L 98-106 (test code = 382) CO2 (BEAKER) (test 18 meq/L 20-29 L code = 355) BLOOD UREA NITROGEN 19 mg/dL 10-26 (BEAKER) (test code = 354) CREATININE (BEAKER) 1.03 mg/dL 0.50-1.20 (test code = 358) GLUCOSE RANDOM 133 mg/dL 70-110 H (BEAKER) (test code = 652) CALCIUM (BEAKER) 7.6 mg/dL 8.5-10.5 L (test code = 697) AST (SGOT) (BEAKER) 12 U/L 5-40 (test code = 353) ALT (SGPT) (BEAKER) 19 U/L 5-50 (test code = 347) EGFR (BEAKER) (test mL/min/1.73 INSUFFIC IENT code = 1092) sq m CLINICAL DATA T O CALCULATE ESTIM ATED GFR. CT, [id number] 19:28:00Reason for exam:->ABDOMINAL PAINFINAL REPORT INDICATION:Right lower quadrant abdominal pain. COMPARISON: None. TECHNIQUE: CT of the Abdomen and Pelvis WITH intravenous contrast. The exam was performed accordingto our department dose-optimization protocol, which includes automated exposure control, adjustmentsof mA and kV according to patient size. Iterative reconstructions are also sometimes employed. FINDINGS:There are prominent fluid-filled small bowel loops which may represent nonspecific enteritis. No small bowel wall thickening and no small bowel obstruction is demonstrated. Appendix is not identified; there is no secondary evidence of appendicitis. No peritoneal free fluid or free air is demonstrated. Diverticuli of the sigmoid colon noted without diverticulitis. Prominent central mesenteric lymphnodes with demarcated area of increased attenuation of the fat, representing mesenteric panniculitis. Liver, gallbladder, pancreas, spleen, adrenal glands, kidneys, bladder unremarkable. Coarse calcification of the central gland of the prostate without prostate enlargement. Focal mild calcified plaqueof the distal abdominal aorta and iliac arteries. Osseous structures unremarkable. IMPRESSION: Prominent fluid-filled small bowel which may represent nonspecific enteritis.Mesenteric panniculitis. Signed: Leonard Cameron MDReport Verified Date/Time: 12/14/2018 19:28:29 Reading Location: [facility] [id number] Reading Room RAD, CHEST, 2 VIEWS 2018-12-14 17:19:00Reason for exam:->ABDOMINAL PAINFINAL REPORT INDICATION: ABDOMINAL PAIN COMPARISON: None. TECHNIQUE: Chest rad iograph, two views, PA and lateral. FINDINGS / IMPRESSION:Stomach is distended with an air-fluid level which may represent gastric outlet obstruction. If the patient has not recently eaten, CT of the abdomen and pelvis with intravenous contrast is recommended. There is no evidence of free intraperitoneal air. Lung volumes are normal and there is no evidence of pneumonia or pulmonary edema. Cardiac and mediastinal contours are unremarkable. No pneumothorax or pleural effusion is demonstrated. Osseousstructures unremarkable. Signed: Leonard Cameron MDReport Verified Date/Time: 12/14/2018 17:19:36 Reading Location: [facility] B1 [id number] Consult Reading Room CBC W/PLT COUNT & AUTO [id number] 17:15:00 Test Item Value Reference Range Interpretation Comments WHITE BLOOD CELL COUNT (BEAKER) 13.9 K/ L 4.0-10.0 H (test code = 775) RED BLOOD CELL COUNT (BEAKER) 6.16 M/ L 4.20-5.80 H (test code = 761) HEMOGLOBIN (BEAKER) (test code = 17.4 GM/DL 13.0-16.8 H 410) HEMATOCRIT (BEAKER) (test code = 51.9 % 36.0-50.0 H 411) MEAN CORPUSCULAR VOLUME (BEAKER) 84.3 fL 82.0-99.0 (test code = 753) MEAN CORPUSCULAR HEMOGLOBIN 28.2 pg 27.0-33.0 (BEAKER) (test code = 751) MEAN CORPUSCULAR HEMOGLOBIN CONC 33.5 GM/DL 32.0-36.0 (BEAKER) (test code = 752) RED CELL DISTRIBUTION WIDTH 12.6 % 12.0-15.0 (BEAKER) (test code = 412) PLATELET COUNT (BEAKER) (test 319 K/CU MM 150-430 code = 756) MEAN PLATELET VOLUME (BEAKER) 9.2 fL 6.0-11.5 (test code = 754) NUCLEATED RED BLOOD CELLS 0 /100 WBC 0-0 (BEAKER) (test code = 413) (MANUAL DIFFERENTIAL)2018-12-14 17:15:00 Test Item Value Reference Range Interpretation Comments NEUTROPHILS - REL (DIFF) (BEAKER) 77 % (test code = 1359) LYMPHOCYTES - REL (DIFF) (BEAKER) 2 % (test code = 1360) MONOCYTES - REL (DIFF) (BEAKER) 8 % (test code = 1361) EOSINOPHILS - REL (DIFF) (BEAKER) 1 % (test code = 1362) BASOPHILS - REL (DIFF) (BEAKER) 0 % (test code = 1363) BANDS - REL (DIFF) (BEAKER) (test 12 % 0-10 H code = 1348) NEUTROPHILS - ABS (DIFF) (BEAKER) 10.70 K/ L 1.80-8.00 H (test code = 1365) LYMPHOCYTES - ABS (DIFF) (BEAKER) 0.28 K/ L 1.48-4.50 L (test code = 1366) MONOCYTES - ABS (DIFF) (BEAKER) 1.11 K/ L 0.00-1.30 (test code = 1367) EOSINOPHILS - ABS (DIFF) (BEAKER) 0.14 K/ L 0.00-0.50 (test code = 1368) BASOPHILS - ABS (DIFF) (BEAKER) 0.00 K/ L 0.00-0.20 (test code = 1369) BANDS-ABS (DIFF) (BEAKER) (test 1.7 K/ L 0.0-0.8 H code = 1349) TOTAL COUNTED (BEAKER) (test code 100 = 1351) BANDS + SEGMENTED NEUTROPHILS 12.37 (BEAKER) (test code = 1352) WBC MORPHOLOGY (BEAKER) (test code Normal = 487) PLT MORPHOLOGY (BEAKER) (test code Normal = 486) ANISOCYTOSIS (BEAKER) (test code = 1+ few 961) COMPREHENSIVE METABOLIC [id number] 17:10:00 Test Item Value Reference Range Interpretation Comments TOTAL PROTEIN 7.2 gm/dL 6.0-8.5 (BEAKER) (test code = 770) ALBUMIN (BEAKER) 4.2 g/dL 3.5-5.0 (test code = 1145) ALKALINE PHOSPHATASE 64 U/L 30-115 (BEAKER) (test code = 346) BILIRUBIN TOTAL 0.5 mg/dL 0.1-1.2 (BEAKER) (test code = 377) SODIUM (BEAKER) 133 meq/L 135-148 L (test code = 381) POTASSIUM (BEAKER) 3.7 meq/L 3.6-5.5 (test code = 379) CHLORIDE (BEAKER) 103 meq/L 98-106 (test code = 382) CO2 (BEAKER) (test 19 meq/L 20-29 L code = 355) BLOOD UREA NITROGEN 18 mg/dL 10-26 (BEAKER) (test code = 354) CREATININE (BEAKER) 0.94 mg/dL 0.50-1.20 (test code = 358) GLUCOSE RANDOM 128 mg/dL 70-110 H (BEAKER) (test code = 652) CALCIUM (BEAKER) 9.4 mg/dL 8.5-10.5 (test code = 697) AST (SGOT) (BEAKER) 21 U/L 5-40 (test code = 353) ALT (SGPT) (BEAKER) 28 U/L 5-50 (test code = 347) EGFR (BEAKER) (test mL/min/1.73 INSUFFIC IENT code = 1092) sq m CLINICAL DATA T O CALCULATE ESTIM ATED GFR. TROPONIN [id number] 17:05:00 Test Item Value Reference Range Interpretation Comments TROPONIN I (BEAKER) (test code = 397) < ng/mL 0.00-0.03 Troponin I (TnI) levels must be interpreted in the context of the presenting symptoms and the clinical findings. Elevated TnI levels indicate myocardial damage, but are not specific for ischemic heart disease. Elevated TnI levels are seen in patients with other cardiac conditions (including myocarditis and congestive heart failure), and slight TnI elevations occur in patients with other conditions, including sepsis, renal failure, acidosis, acute neurological disease, and persistent tachyarrhythmia.[id number] 17:01:00 Test Item Value Reference Range Interpretation Comments LIPASE (BEAKER) (test code = 749) 15 U/L 6-51
[2021-05-25] MEDS ORDERED: NA CHLORIDE 0.9% 1,000 ML ONE (00:01)
[2021-05-25] MEDS ORDERED: DIPHENHYDRAMINE 50 MG/ML VIAL ONE (00:01)
[2021-05-25] MEDS ORDERED: METOCLOPRAMIDE 10 MG/2mL INJ ONE (00:01)
--- NOTE | 2021-05-25 02:13 | EDPHYS ---
Physician Documentation [facility] Name: Sabino Ba Age: 50 yrs Sex: Male : 1970 Arrival Date: 05/24/2021 Time: 18:23 Bed 8 Private MD: ED Physician Aneesh Vilchis HPI: 05/24 23:25 This 50 yrs old Male presents to ER via Ambulatory with complaints of mh7 Headache - Post Spinal Tap. 23:25 The patient complains of pain to the top of head. mh7 23:25 The patient describes the headache as intermittent, throbbing, waxing and waning. mh7 Onset: The symptoms/episode began/occurred 4 day(s) ago. Associated signs and symptoms: Pertinent positives: nausea, Pertinent negatives: altered mental status, dizziness, fever, malaise, neck stiffness, paresthesias, Photophobia rash, sinus congestion, sinus tenderness, vision changes, vision loss, vomiting, weakness, vertigo. Severity of symptoms: At its worst the pain was moderate, 3 day(s) ago, in the emergency department the pain has improved, moderately. Headache History: Other started after lumbar puncture was done. The symptoms are alleviated by laying down the symptoms are aggravated by nothing. States that he had a spinal tap done as part of a study group for Parkinson's Disease then later started to have a headache that is relieved when laying down. He has had some nausea. Denies fever, vomiting, visual disturbances, neck stiffness/pain, or other complaints. Symptoms have improved with periodic Ibuprofen.. Historical: - Allergies: 18:31 No Known Allergies; ll1 - PMHx: 18:31 Parkinson's disease; Hypertensive disorder; ll1 - PSHx: 18:31 None; ll1 - Immunization history:: Client reports receiving the 2nd dose of the Covid vaccine, Flu vaccine is up to date. - Social history:: Smoking status: Patient denies any tobacco usage or history of. ROS: 23:25 Constitutional: Negative for fever, chills, and weight loss, Eyes: Negative for injury, mh7 pain, redness, and discharge, ENT: Negative for injury, pain, and discharge, Neck: Negative for injury, pain, and swelling, Cardiovascular: Negative for chest pain, palpitations, and edema, Respiratory: Negative for shortness of breath, cough, wheezing, and pleuritic chest pain, Back: Negative for injury and pain, : Negative for injury, bleeding, discharge, and swelling, MS/Extremity: Negative for injury and deformity, Skin: Negative for injury, rash, and discoloration, Psych: Negative for depression, anxiety, suicide ideation, homicidal ideation, and hallucinations, Allergy/Immunology: Negative for hives, rash, and allergies, Endocrine: Negative for neck swelling, polydipsia, polyuria, polyphagia, and marked weight changes, Hematologic/Lymphatic: Negative for swollen nodes, abnormal bleeding, and unusual bruising. Exam: 05/25 00:12 Constitutional: This is a well developed, well nourished patient who is awake, alert, mh7 and in no acute distress. Head/Face: Normocephalic, atraumatic. Eyes: Pupils equal round and reactive to light, extra-ocular motions intact. Lids and lashes normal. Conjunctiva and sclera are non-icteric and not injected. Cornea within normal limits. Periorbital areas with no swelling, redness, or edema. Neck: Trachea midline, no thyromegaly or masses palpated, and no cervical lymphadenopathy. Supple, full range of motion without nuchal rigidity, or vertebral point tenderness. No Meningismus. Chest/axilla: Normal chest wall appearance and motion. Nontender with no deformity. No lesions are appreciated. Cardiovascular: Regular rate and rhythm with a normal S1 and S2. No gallops, murmurs, or rubs. Normal PMI, no JVD. No pulse deficits. Respiratory: Lungs have equal breath sounds bilaterally, clear to auscultation and percussion. No rales, rhonchi or wheezes noted. No increased work of breathing, no retractions or nasal flaring. Abdomen/GI: Soft, non-tender, with normal bowel sounds. No distension or tympany. No guarding or rebound. No evidence of tenderness throughout. Back: No spinal tenderness. No costovertebral tenderness. Full range of motion. Skin: Warm, dry with normal turgor. Normal color with no rashes, no lesions, and no evidence of cellulitis. MS/ Extremity: Pulses equal, no cyanosis. Neurovascular intact. Full, normal range of motion. Neuro: Awake and alert, GCS 15, oriented to person, place, time, and situation. Cranial nerves II-XII grossly intact. Motor strength 5/5 in all extremities. Sensory grossly intact. Cerebellar exam normal. Normal gait. Psych: Awake, alert, with orientation to person, place and time. Behavior, mood, and affect are within normal limits. Vital Signs: 05/24 18:28 BP 152 / 98; Pulse 60; Resp 17; Temp 97.7; Pulse Ox 99% ; Weight 115.67 kg; Height 5 ll1 ft. 10 in. (177.80 cm); Pain 7/10; 05/25 00:45 BP 141 / 85; Pulse 63; Resp 16; Pulse Ox 100% on R/A; jb4 05/24 18:28 Body Mass Index 36.59 (115.67 kg, 177.80 cm) ll1 Mor Coma Score: 02:10 Eye Response: spontaneous(4). Verbal Response: oriented(5). Motor Response: obeys mh7 commands(6). Total: 15. MDM: 02:10 Differential diagnosis: cluster headache, migraine, tension headache, Post lumbar mh7 puncture headache. Data reviewed: vital signs, nurses notes. Counseling: I had a detailed discussion with the patient and/or guardian regarding: the historical points, exam findings, and any diagnostic results supporting the discharge/admit diagnosis, the need for outpatient follow up, to return to the emergency department if symptoms worsen or persist or if there are any questions or concerns that arise at home. Response to treatment: the patient's symptoms have resolved after treatment, the patient's blood pressure is in an acceptable range, mental status has returned to baseline, the patient no longer shows bradycardia, the patient is not short of breath, the patient is not tachycardic, the patient's pain is gone, the patient's temperature has normalized. 02:13 Patient medically screened. [facility] 05/24 23:30 Order name: IV Start; Complete Time: 00:46 jb4 Administered Medications: 05/24 23:58 Not Given (Medication not availablee): Caffeine-Sodium Benzoate 500 mg IV at per 4 protocol once 05/25 00:44 Drug: NS 0.9% 1000 ml Route: IV; Rate: 1000 ml; Site: right hand; [facility] 02:04 Follow up: IV Status: Completed infusion; IV Intake: 1000ml em 00:44 Drug: Reglan (metoCLOPramide) 10 mg Route: IVP; Site: right hand; jb4 02:04 Follow up: Response: No adverse reaction; Marked relief of symptoms em 00:45 Drug: Benadryl (diphenhydrAMINE) 50 mg Route: IVP; Site: right antecubital; jb4 02:04 Follow up: Response: No adverse reaction; Marked relief of symptoms em Disposition Summary: 05/25/21 02:13 Discharge Ordered Location: Home [facility] Problem: an ongoing problem [facility] Symptoms: have improved [facility] Condition: Stable [facility] Diagnosis - Post Lumbar Puncture headache [facility] Followup: [facility] - With: Private Physician - When: 1 - 2 days - Reason: Worsening of condition, Recheck today's complaints, Continuance of care, Re-evaluation by your physician Discharge Instructions: - Discharge Summary Sheet [facility] - Spinal Headache [facility] - Lumbar Puncture, Care After [facility] Forms: - Medication Reconciliation Form [facility] - Thank You Letter [facility] - Antibiotic Education [facility] - Prescription Opioid Use [facility] Signatures: Graeme Jorge RN RN jb4 Cyndee Babb RN RN 1 Aneesh Vilchis MD MD 7 Chris Hernandez RN em
--- NOTE | 2021-05-25 02:13 | ER ---
Nurse's Notes [facility] Name: Sabino Ba Age: 50 yrs Sex: Male : 1970 Arrival Date: 05/24/2021 Time: 18:23 Bed 8 Private MD: Diagnosis: Post Lumbar Puncture headache Presentation: 05/24 18:28 Chief complaint: Patient states: Severe CALI since Wednesday after getting a spinal tap ll1 for Parkinson's research study. No fever. + nausea. Coronavirus screen: Client denies travel out of the [place] in the last 14 days. At this time, the client does not indicate any symptoms associated with coronavirus-19. Ebola Screen: Patient denies travel to an Ebola-affected area in the 21 days before illness onset. Initial Sepsis Screen: Does the patient meet any 2 criteria? No. Patient's initial sepsis screen is negative. Does the patient have a suspected source of infection? No. Patient's initial sepsis screen is negative. Risk Assessment: Do you want to hurt yourself or someone else? Patient reports no desire to harm self or others. Onset of symptoms was May 21, 2021. 18:28 Method Of Arrival: Ambulatory ll1 18:28 Acuity: ALPHONSO 3 ll1 Historical: - Allergies: 18:31 No Known Allergies; ll1 - PMHx: 18:31 Parkinson's disease; Hypertensive disorder; ll1 - PSHx: 18:31 None; ll1 - Immunization history:: Client reports receiving the 2nd dose of the Covid vaccine, Flu vaccine is up to date. - Social history:: Smoking status: Patient denies any tobacco usage or history of. Screenin:45 Abuse screen: Denies threats or abuse. Nutritional screening: No deficits noted. jb4 Tuberculosis screening: No symptoms or risk factors identified. Fall Risk None identified. Assessment: 22:45 General: Appears in no apparent distress. uncomfortable, Behavior is calm, cooperative, jb4 appropriate for age. Pain: Complains of pain in back Pain radiates to scalp, back and neck Pain currently is 7 out of 10 on a pain scale. Neuro: Level of Consciousness is awake, alert, obeys commands, Oriented to person, place, time. Cardiovascular: Patient's skin is warm and dry. Respiratory: Airway is patent Respiratory effort is even, unlabored, Respiratory pattern is regular, symmetrical. GI: No signs and/or symptoms were reported involving the gastrointestinal system. : No signs and/or symptoms were reported regarding the genitourinary system. EENT: No signs and/or symptoms were reported regarding the EENT system. Derm: Skin is intact, Skin is pink, warm \T\ dry. Musculoskeletal: Circulation, motion, and sensation intact. Range of motion: intact in all extremities. 22:45 Reassessment: Assisted pt to supine position, reports immediate decrease in pain. jb4 05/25 00:44 Reassessment: Patient appears in no apparent distress at this time. Patient and/or jb4 family updated on plan of care and expected duration. Pain level reassessed. Patient is alert, oriented x 3, equal unlabored respirations, skin warm/dry/pink. 01:40 Reassessment: Patient appears in no apparent distress at this time. Patient and/or em family updated on plan of care and expected duration. Pain level reassessed. Patient is alert, oriented x 3, equal unlabored respirations, skin warm/dry/pink. resting comfortably with eyes closed, no distress noted. 02:06 Reassessment: Patient appears in no apparent distress at this time. Patient and/or em family updated on plan of care and expected duration. Pain level reassessed. Patient is alert, oriented x 3, equal unlabored respirations, skin warm/dry/pink. Patient states feeling better. Vital Signs: 05/24 18:28 BP 152 / 98; Pulse 60; Resp 17; Temp 97.7; Pulse Ox 99% ; Weight 115.67 kg; Height 5 ll1 ft. 10 in. (177.80 cm); Pain 7/10; 05/25 00:45 BP 141 / 85; Pulse 63; Resp 16; Pulse Ox 100% on R/A; jb4 05/24 18:28 Body Mass Index 36.59 (115.67 kg, 177.80 cm) ll1 Mor Coma Score: 02:10 Eye Response: spontaneous(4). Verbal Response: oriented(5). Motor Response: obeys mh7 commands(6). Total: 15. ED Course: 05/24 18:23 Patient arrived in ED. ds1 18:31 Triage completed. ll1 18:31 Arm band placed on. ll1 22:38 Aneesh Vilchis MD is Attending Physician. [facility] 22:43 Graeme Jorge, RN is Primary Nurse. jb4 22:45 Patient has correct armband on for positive identification. Placed in gown. Bed in low jb4 position. Call light in reach. Side rails up X 1. Pulse ox on. NIBP on. 05/25 00:40 Inserted saline lock: 18 gauge in right hand, using aseptic technique. jb4 Administered Medications: 05/24 23:58 Not Given (Medication not availablee): Caffeine-Sodium Benzoate 500 mg IV at per [facility] protocol once 05/25 00:44 Drug: NS 0.9% 1000 ml Route: IV; Rate: 1000 ml; Site: right hand; 4 02:04 Follow up: IV Status: Completed infusion; IV Intake: 1000ml em 00:44 Drug: Reglan (metoCLOPramide) 10 mg Route: IVP; Site: right hand; 4 02:04 Follow up: Response: No adverse reaction; Marked relief of symptoms em 00:45 Drug: Benadryl (diphenhydrAMINE) 50 mg Route: IVP; Site: right antecubital; jb4 02:04 Follow up: Response: No adverse reaction; Marked relief of symptoms em Intake: 02:04 IV: 1000ml; Total: 1000ml. em Outcome: 02:13 Discharge ordered by . [facility] 02:21 Patient left the ED. em Signatures: Chris Hernandez RN RN em Debra Hassan ds1 Graeme Jorge RN RN [facility] Cyndee Babb RN RN 1 Aneesh Vilchis MD MD [facility]
[2021-05-25 02:27] VITALS: TEMP 97.7
[2021-05-25 02:29] VITALS: BP 141/85; O2SAT 100
== END 2021-05-25 02:21 | disposition home or self-care (01) ==
LOC: ER 18:17
DX: G97.1 Other reaction to spinal and lumbar puncture (principal); I10 Essential (primary) hypertension; G20 Parkinson's disease
CPT/HCPCS: 99283